=== PATIENT | female | born 2000 | race Hispanic/Latino ===

== ENCOUNTER 2021-05-12 11:46 | Emergency (ER) | payer OTHER ==
--- OUTSIDE RECORDS SUMMARY | 2021-05-12 11:49 | XMS REPORT | Continuity of Care Document ---
:2000 Author Organization [facility] t Address [address] [place] [address] Care Team Providers Name Role Phone Clinic, Gastroenterology Attending Clinician [phone] Artem Laguna DO Attending Clinician Lab, [facility] Pob I Attending Clinician Unavailable Doctor Unassigned, Name Attending Clinician Unavailable Anene BOX LOADER Attending Clinician Problems This patient has no known problems. Allergies, Adverse Reactions, Alerts This patient has no known allergies or adverse reactions. Medications This patient has no known medications. Procedures This patient has no known procedures. Encounters Start End Encounter Admission Attending Care Care Encounter Source Date/Time Date/Time Type Type Clinicians Facility Department ID 2021-02-17 2021-02-17 Letter [facility] [id number] 00:00:00 00:00:00 (Out) [facility] [id number] Gastroenter CLINICS [id number] ology [id number] 2021-02-08 2021-02-08 Patient Jase [facility] [id number] 00:00:00 00:00:00 Outreach [facility] [id number] Artem [facility] [id number] PAVILLION [id number] 2021-01-18 2021-01-18 Laboratory Lab, [facility] [id number] 18:22:09 18:42:09 Only Fam [facility] [id number] [place] [id number] Professio [phone] nal 0[address] One 2021-01-18 2021-01-18 Letter Doctor PALAK [id number] 00:00:00 00:00:00 (Out) Unassigned, JYOTI [id number] [facility] [id number] 2021-01-17 2021-01-17 Hospital [facility] [id number] 13:00:00 23:59:00 Encounter Raiza Martin [id number] [place] [id number] [place] [id number] 2021-01-17 2021-01-17 Orders Doctor PALAK [id number] 00:00:00 00:00:00 Only Unassigned, JYOTI [id number] [facility] [id number] 2020-12-30 2020-12-30 Office [facility] [id number] 11:36:59 12:01:21 Visit Raiza [place] [id number] [place] [id number] Professio [phone] nal 044 Office [address] One Results This patient has no known results.
[2021-05-12 12:47] LABS: Urine Blood Negative (Negative); Urine Glucose Negative (Negative); Urine Protein Negative (Negative); Urine Specific Gravity >=1.030 (1.005-1.030)
[2021-05-12] MEDS ORDERED: MORPHINE 4 MG/ML SYR ONE (12:58)
[2021-05-12] MEDS ORDERED: ONDANSETRON 4 MG/2 ML VIAL ONE (12:58)
[2021-05-12] MEDS ORDERED: NA CHLORIDE 0.9% 1,000 ML ONE (12:58)
[2021-05-12 13:04] LABS: Specific Gravity 1.025 (1.005-1.030); Urine Appearance CLEAR (Clear); Urine Bilirubin NEGATIVE (Negative); Urine Blood NEGATIVE (Negative); Urine Color YELLOW (Yellow); Urine Glucose NEGATIVE (Negative); Urine Protein NEGATIVE (Negative); Urine Specific Gravity 1.025 (1.005-1.030)
[2021-05-12 13:11] LABS: Urine Microscopic Reflex NO UMIC
--- NOTE | 2021-05-12 13:30 | RAD REPORT ---
EXAM DESCRIPTION: CT - Abdomen Pelvis W Contrast - 05/12/2021 1:18 pm CLINICAL HISTORY: abd pain COMPARISON: No comparisons TECHNIQUE: Biphasic, helical CT imaging of the abdomen and pelvis was performed following 100 ml non -ionic IV contrast. Oral contrast was given. All CT scans are performed using dose optimization technique as appropriate and may include automated exposure control or mA/KV adjustment according to patient size. FINDINGS: No suspicious findings in the lung bases. Liver shows diffuse fatty infiltration with no focal liver lesion. No portal vein abnormality seen. N o splenomegaly or focal splenic finding. Cholecystectomy clips are present. There is no dilatation of the biliary tree. No pancreatic or siddharth pancreatic abnormality identifiable. Gastric antrum and duodenum also out focal finding. Symmetric renal function is seen with no hydronephrosis or suspicious renal mass. No pyelonephritis o r acute parenchymal process. No bladder abnormalities. No adrenal abnormalities. An incidental 16 mil limeter cyst is present lateral mid left kidney. No dilated bowel loops or bowel wall thickening. Patient has a few small mesenteric lymph nodes prese nt. These are under 1 centimeter in probably not significant. The appendix is normal. No free air, fr ee fluid or inflammatory stranding. No hernia, mass or bulky lymphadenopathy. No uterine abnormality. No ovarian cyst rupture or hemorrhage. No adnexal abnormalities. No suspicious bony findings. IMPRESSION: Status post cholecystectomy with no biliary tree abnormality. The pancreas, gastric antr um and duodenum unremarkable as well. No acute GI, or RN NEW GRAD process identifiable. The few small sub centimeter mesenteric lymph nodes that are present are not likely clinically significant.
[2021-05-12 13:38] LABS: Absolute Lymphocytes (CBC) 3.1 K/uL (0.7-4.9); Hematocrit 35.6 % (36.0-45.0); Lymphocytes % 33.7 % (15.3-44.8); MPV 8.5 fL (7.6-11.3); RBC Red Blood Cell Count 4.13 M/uL (3.86-4.86)
[2021-05-12 13:57] LABS: ALT/SGPT 52 U/L (12-78); AST/SGOT 32 U/L (15-37); Alkaline Phosphatase 76 U/L (45-117); Amylase 25 U/L (25-115); BUN Blood Urea Nitrogen 8 mg/dL (7-18); Bicarbonate 23 mmol/L (21-32); Bilirubin Direct 0.1 mg/dL (0-0.2); Bilirubin Total 0.5 mg/dL (0.2-1.0); Glucose Level 85 mg/dL (74-106); Lipase 42 U/L (73-393); Potassium 3.5 mmol/L (3.5-5.1); Protein, Total 7.3 g/dL (6.4-8.2); Sodium Level 136 mmol/L (136-145)
--- NOTE | 2021-05-12 14:38 | ER ---
Nurse's Notes [facility] Name: Amy Myanard Age: 20 yrs Sex: Female : 2000 Arrival Date: 05/12/2021 Time: 11:48 Bed 25 Private MD: Diagnosis: Generalized abdominal pain Presentation: 05/12 11:51 Chief complaint: Patient states: "Right sided abdominal pain. it feels like my gal jd3 bladder but I had it taken out.". Coronavirus screen: At this time, the client does not indicate any symptoms associated with coronavirus-19. Ebola Screen: Patient negative for fever greater than or equal to 101.5 degrees Fahrenheit, and additional compatible Ebola Virus Disease symptoms. Initial Sepsis Screen: Does the patient meet any 2 criteria? No. Patient's initial sepsis screen is negative. Does the patient have a suspected source of infection? No. Patient's initial sepsis screen is negative. Risk Assessment: Do you want to hurt yourself or someone else? Patient reports no desire to harm self or others. Onset of symptoms was May 12, 2021. 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 - Social history:: Smoking status: Patient denies any tobacco usage or history of. Screenin:24 Abuse screen: Denies threats or abuse. Denies injuries from another. Nutritional ld1 screening: No deficits noted. Tuberculosis screening: No symptoms or risk factors identified. Fall Risk None identified. Assessment: 12:24 General: Appears in no apparent distress. comfortable, Behavior is calm, cooperative, ld1 appropriate for age. Pain: Complains of pain in epigastric area, right upper quadrant and left upper quadrant Pain does not radiate. Pain currently is 5 out of 10 on a pain scale. Quality of pain is described as throbbing, Pain began 3 hours ago. Is continuous. Neuro: Level of Consciousness is awake, alert, obeys commands, Oriented to person, place, time, situation, Appropriate for age. Cardiovascular: Capillary refill < 3 seconds Patient's skin is warm and dry. Respiratory: Airway is patent Respiratory effort is even, unlabored, Respiratory pattern is regular, symmetrical. GI: Abdomen is round non-distended, Bowel sounds present X 4 quads. Abd is soft Abdomen is tender to palpation X 4 quads. : Urine is clear. EENT: No signs and/or symptoms were reported regarding the EENT system. Derm: No signs and/or symptoms reported regarding the dermatologic system. Musculoskeletal: No signs and/or symptoms reported regarding the musculoskeletal system. 12:54 Reassessment: Pt to CT at this time VIA stretcher. ss 13:45 Reassessment: Patient appears in no apparent distress at this time. No changes from ld1 previously documented assessment. 14:30 Reassessment: Patient is alert, oriented x 3, equal unlabored respirations, skin ld1 warm/dry/pink. Waiting on results with family at bedside. Denies concerns at this time. Vital Signs: 11:52 BP 137 / 89; Pulse 107; Resp 18 S; Temp 97.6(TE); Pulse Ox 98% on R/A; Weight 108.86 kg jd3 (R); Height 5 ft. 0 in. (152.40 cm) (R); Pain 7/10; 12:50 BP 113 / 74; Pulse 70; Resp 18; Pulse Ox 99% on R/A; ld1 14:00 BP 100 / 62; Pulse 65; Resp 18; Pulse Ox 100% ; ld1 11:52 Body Mass Index 46.87 (108.86 kg, 152.40 cm) jd3 ED Course: 11:48 Patient arrived in ED. mr 11:51 Triage completed. jd3 11:53 Arm band placed on. jd3 11:55 Erika العراقي MD is Attending Physician. ma2 11:55 Kanchan Guillermo, CLARK is Primary Nurse. ld1 12:07 Dileep Gaines PA is PHCP. [facility] 12:24 Patient has correct armband on for positive identification. Bed in low position. Call ld1 light in reach. Side rails up X2. Pulse ox on. NIBP on. 12:24 No provider procedures requiring assistance completed. ld1 12:54 Inserted saline lock: 22 gauge in left wrist, using aseptic technique. ss 13:17 Abdomen In Process Unspecified. EDMS 13:38 Initial lab(s) drawn, Lab(s) recollected, by me, sent to lab. 5 13:39 Lipase Sent. 5 13:39 CBC with Automated Diff Sent. 5 13:39 Liver (Hepatic) Function Sent. 5 13:39 Amylase Sent. 5 13:39 Basic Metabolic Panel Sent. 5 13:39 CREATININE WHOLE BLOOD Sent. 5 14:36 Claudio Jaimes MD is Referral Physician. [facility] 14:46 IV discontinued, intact, bleeding controlled, No redness/swelling at site. ld1 Administered Medications: No medications were administered Outcome: 14:37 Discharge ordered by MD. [facility] 14:45 Discharged to home ambulatory. ld1 14:45 Condition: stable 14:45 Discharge instructions given to patient, Instructed on discharge instructions, follow up and referral plans. medication usage, Demonstrated understanding of instructions, follow-up care, medications. 14:46 Patient left the ED. ld1 Signatures: Dispatcher [employer] EDMS Dileep Gaines PA PA jmm Rivera, Mary mr Vika Perez, May Davis RN 5 Roberth Rodriguez RN RN Erika Mathis MD MD ms2 Kanchan Guillermo RN RN ld1
--- NOTE | 2021-05-12 14:38 | EDPHYS ---
Physician Documentation [facility] Name: Amy Maynard Age: 20 yrs Sex: Female : 2000 Arrival Date: 05/12/2021 Time: 11:48 Bed 25 Private MD: ED Physician Erika العراقي HPI: 05/12 12:32 This 20 yrs old Female presents to ER via Ambulatory with complaints of jmm Abdominal Pain, Nausea. 12:32 The patient presents with abdominal pain. Onset: The symptoms/episode began/occurred jmm this morning. The symptoms do not radiate. Associated signs and symptoms: Pertinent positives: diarrhea, vomiting. The symptoms are described as achy, contraction. Modifying factors: The symptoms are alleviated by nothing, the symptoms are aggravated by nothing. This is a 20 year old female with a history of IBS that presents to the ED with complaints of abdominal pain, vomiting beginning this morning. Pain is m,ainly epigastric. Describes the pain as contractions. . 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 - Social history:: Smoking status: Patient denies any tobacco usage or history of. ROS: 12:32 Constitutional: Negative for fever, chills, and weight loss, Cardiovascular: Negative jmm for chest pain, palpitations, and edema, Respiratory: Negative for shortness of breath, cough, wheezing, and pleuritic chest pain. 12:32 Abdomen/GI: Positive for abdominal pain, nausea and vomiting, diarrhea. 12:32 All other systems are negative. Exam: 12:32 Constitutional: This is a well developed, well nourished patient who is awake, alert, jmm and in no acute distress. Head/Face: atraumatic. Eyes: EOMI, no conjunctival erythema appreciated ENT: Moist Mucus Membranes Neck: Trachea midline, Supple Chest/axilla: Normal chest wall appearance and motion. Cardiovascular: Regular rate and rhythm. No edema appreciated Respiratory: Normal respirations, no respiratory distress appreciated Abdomen/GI: Non distended, soft Back: Normal ROM Skin: General appearance color normal MS/ Extremity: Moves all extremities, no obvious deformities appreciated, no edema noted to the lower extremities Neuro: Awake and alert, normal gait Psych: Behavior is normal, Mood is normal, Patient is cooperative and pleasant Vital Signs: 11:52 BP 137 / 89; Pulse 107; Resp 18 S; Temp 97.6(TE); Pulse Ox 98% on R/A; Weight 108.86 kg jd3 (R); Height 5 ft. 0 in. (152.40 cm) (R); Pain 7/10; 12:50 BP 113 / 74; Pulse 70; Resp 18; Pulse Ox 99% on R/A; ld1 14:00 BP 100 / 62; Pulse 65; Resp 18; Pulse Ox 100% ; ld1 11:52 Body Mass Index 46.87 (108.86 kg, 152.40 cm) jd3 MDM: 11:55 Patient medically screened. ma2 14:36 Data reviewed: vital signs, nurses notes. Counseling: I had a detailed discussion with didi the patient and/or guardian regarding: the historical points, exam findings, and any diagnostic results supporting the discharge/admit diagnosis, lab results, radiology results, the need for outpatient follow up, to return to the emergency department if symptoms worsen or persist or if there are any questions or concerns that arise at home. 05/12 12:32 Order name: Amylase; Complete Time: 14:05 EDTN 05/12 12:32 Order name: Basic Metabolic Panel; Complete Time: 14:05 EDTN 05/12 12:32 Order name: Lipase; Complete Time: 14:05 EDTN 05/12 12:32 Order name: Liver (Hepatic) Function; Complete Time: 14:05 EDTN 05/12 12:32 Order name: CBC with Automated Diff; Complete Time: 13:45 EDTN 05/12 12:47 Order name: Urine Dipstick-Ancillary; Complete Time: 12:56 EDMS 05/12 12:32 Order name: Abdomen ; Complete Time: 13:35 EDMS 05/12 12:47 Order name: Urine Dipstick-Ancillary EDTN 05/12 12:57 Order name: Test, Urine; Complete Time: 13:27 EDTN 05/12 12:57 Order name: Urinalysis; Complete Time: 13:27 EDMS 05/12 13:07 Order name: Labs - recollect needed: recollect lav and green; Complete Time: 13:28 ss 05/12 13:24 Order name: CREATININE WHOLE BLOOD EDTN Administered Medications: No medications were administered Disposition: 05/12/21 14:37 Discharged to Home. Impression: Generalized abdominal pain. - Condition is Stable. - Discharge Instructions: Abdominal Pain, Adult. - Prescriptions for Zofran 4 mg Oral tablet - take 1 tablet by ORAL route 4 times per day; 20 tablet. Carafate 1 gram Oral Tablet - take 1 tablet by ORAL route 4 times per day take on an empty stomach, beginning on waking and last dose at bedtime; 100 tablet. Pepcid 20 mg Oral Tablet - take 1 tablet by ORAL route once daily; 20 tablet. - Medication Reconciliation Form, Thank You Letter, Antibiotic Education, Prescription Opioid Use, Work release form form. - Follow up: Claudio Jaimes MD; When: 2 - 3 days; Reason: Recheck today's complaints, Continuance of care, Re-evaluation by your physician. Signatures: Dispatcher [employer] EDTN Dileep Gaines PA PA jmm Smirch, Shelby, RN RN ss Roberth Rodriguez RN RN Erika Mathis MD MD ma2 Kanchan Guillermo RN RN ld1 Corrections: (The following items were deleted from the chart) 14:46 14:37 05/12/2021 14:37 Discharged to Home. Impression: Generalized abdominal pain. ld1 Condition is Stable. Forms are Medication Reconciliation Form, Thank You Letter, Antibiotic Education, Prescription Opioid Use. Follow up: Claudio Jaimes; When: 2 - 3 days; Reason: Recheck today's complaints, Continuance of care, Re-evaluation by your physician. didi
[2021-05-12 14:59] VITALS: TEMP 97.6
[2021-05-12 15:01] VITALS: BP 100/62; O2SAT 100
== END 2021-05-12 14:46 | disposition home or self-care (01) ==
LOC: ER 11:46
DX: R10.84 Generalized abdominal pain (principal); R11.2 Nausea with vomiting, unspecified
CPT/HCPCS: 85025; 80048; 36415; 82150; 81025; 82565; 80076; 81003 ×2; 83690; 74177; Q9967; J7030; J2405

== ENCOUNTER 2021-11-02 13:59 | Emergency (ER) | payer OTHER ==
--- OUTSIDE RECORDS SUMMARY | 2021-11-02 14:02 | XMS REPORT | Continuity of Care Document ---
:2000 Author Organization [facility] t Address [address] [place] [address] Care Team Providers Name Role Phone ANENE Primary Care Physician Unavailable RAFY Attending Clinician Unavailable KIM SPANN Attending Clinician Unavailable Kim Spann MD Attending Clinician Rafy HESS Attending Clinician 2, Lab Attending Clinician Unavailable Doctor Unassigned, Name Attending Clinician Unavailable Clinic, Gastroenterology Attending Clinician [phone] Artem Laguna DO Attending Clinician Lab, Fam Pob I Attending Clinician Unavailable Marjorie LOBO Attending Clinician Unavailable Elan BAND INSTRUMENT MAKER Attending Clinician ANENAVEEN Attending Clinician Unavailable KIM SPANN Admitting Clinician Unavailable Payers Payer Name Policy Type Policy Number Effective Date Expiration Date Rene tomas [facility] [id number] 2020 00:00:00 Problems Condition Condition Condition Status Onset Resolution Last Treating Co mments Source Name Details Category Date Date Treatment Clinician Date High risk High risk Disease Active 2020-11 Uni vers , , 2-09 [place] Abdominal Abdominal Disease Active 2020-11 Uni vers pain, pain, 0-15 [place] of epigastric [place]igastric [place] Diarrhea, Diarrhea, Disease Active 2020-11 Uni vers unspecifie unspecifie 0-15 it y of d type d type 00:00: [place] 00 [facility] Heartburn Heartburn Disease Active 2020-11 Uni vers during during 0-15 [place] Med[place] l trimester trimester Bran ch Nausea and Nausea and Disease Active 2020-11 U nivers vomiting vomiting 0-15 ity of during during 00:00: [place] 00 [facility] Previous Previous Disease Active Unive rs 9-30 ity of section section 00:00: [place] [facility] History of History of Disease Active U nivers pre-eclamp pre-eclamp 9-30 it y of [place] 00:00: [place] prior prior 00 Medical , , Br anch currently currently BMI BMI Disease Active 2019-11 Univers 50.0-59.9, 50.0-59.9, 1-10 it y of adult adult 00:00: [place] [facility] History of History of Disease Active U nivers depression depression 9-21 it y of 00:00: [place] [facility] History of History of Disease Active U nivers anxiety anxiety 9-21 ity of 00:00: [address] Allergies, Adverse Reactions, Alerts Allergy Allergy Status Severity Reaction(s) Onset Inactive Treating Comm ents Source Name Type Date Date Clinician NO KNOWN Drug Active Univers ALLERGIE Class ity of S [facility] Social History Social Habit Start Date Stop Date Quantity Comments Source ASSERTION 2021-07-21 [facility] 00:00:00 [facility] Exposure to Not sure [facility] SARS-CoV-2 [facility] (event) Branch Alcohol intake 2021-10-27 2021-10-27 Ex-drinker [facility] 00:00:00 00:00:00 (finding) [facility] Tobacco use and 2020-08-09 2020-08-09 Never used Universit y of exposure 00:00:00 00:00:00 [facility] Sex Assigned At 2000 2000 Universit y of 00:00:00 00:00:00 [facility] Smoking Status Start Date Stop Date Source Never smoker [facility] Medications Ordered Filled Start Stop Current Ordering Indication Dosage Frequency Signature Comments Components Source Medication Medication Date Date Medication? Clinician (SIG) Name Name aspirin 81 2020-11 Yes [id number] 81mg Take 1 Univers mg EC 1-11 tablet by ity of tablet 00:00: mouth [place] 00 daily. Medical Branch aspirin 81 2020-11 Yes [id number] 81mg Take 1 Univers mg EC 1-11 tablet by ity of tablet 00:00: mouth [place] 00 daily. Medical Branch aspirin 81 2020-11 Yes [id number] 81mg Take 1 Univers mg EC 1-11 tablet by ity of tablet 00:00: mouth [place] 00 daily. Medical Branch aspirin 81 2020-11 Yes [id number] 81mg Take 1 Univers mg EC 1-11 tablet by ity of tablet 00:00: mouth [place] 00 daily. Medical Branch aspirin 81 2020-11 Yes [id number] 81mg Take 1 Univers mg EC 1-11 tablet by ity of tablet 00:00: mouth [place] 00 daily. Medical Branch aspirin 81 2020-11 Yes [id number] 81mg Take 1 Univers mg EC 1-11 tablet by ity of tablet 00:00: mouth [place] 00 daily. Medical Branch 2020-11- No Take by Univ ers vit 0-14 10-14 mouth. ity of calc,iron,f 16:27: 00:00 [place] ol 06 :00 Medical ( Branch VITAMIN ORAL) ondansetron 2020- No Take by U nivers HCl (ZOFRAN 08-18 mouth. ity o f ORAL) 15:23: 00:00 [place] 01 :00 Medical Branch famotidine 2020- No Take by Leonel hao (PEPCID 08-18 mouth. ity of ORAL) 15:22: 00:00 [place] 55 :00 Medical Branch Yes Take by Unive rs vit -30 mouth. ity of calc,iron,f 15:13: [place] [id number] Medical ( Branch VITAMIN ORAL) Yes Take by Unive rs vit -30 mouth. ity of calc,iron,f 15:13: [place] [address] Medical ( Branch VITAMIN ORAL) Yes Take by Unive rs vit -30 mouth. ity of calc,iron,f 15:13: [place] [address] Medical ( Branch VITAMIN ORAL) PNV Yes [id number] Take 1 Univers 102-iron-fo 9-30 TAB-CAP/M2 it y of late-dha 00:00: by mouth Antolin (VITAFOL FE 00 daily. Medica l PLUS) 90 mg Branch iron- 1 mg-200 mg Cap PNV 2020-0 Yes [id number] Take 1 Univers 102-iron-fo 9-30 TAB-CAP/M2 it y of late-dha 00:00: by mouth Antolin (VITAFOL FE 00 daily. Medica l PLUS) 90 mg Branch iron- 1 mg-200 mg Cap PNV 2020-0 Yes [id number] Take 1 Univers 102-iron-fo 9-30 TAB-CAP/M2 it y of late-dha 00:00: by mouth Antolin (VITAFOL FE 00 daily. Medica l PLUS) 90 mg Branch iron- 1 mg-200 mg Cap PNV 2020-0 Yes [id number] Take 1 Univers 102-iron-fo 9-30 TAB-CAP/M2 it y of late-dha 00:00: by mouth Antolin (VITAFOL FE 00 daily. Medica l PLUS) 90 mg Branch iron- 1 mg-200 mg Cap PNV 2020-0 Yes [id number] Take 1 Univers 102-iron-fo 9-30 TAB-CAP/M2 it y of late-dha 00:00: by mouth Antolin (VITAFOL FE 00 daily. Medica l PLUS) 90 mg Branch iron- 1 mg-200 mg Cap PNV 2020-0 Yes [id number] Take 1 Univers 102-iron-fo 9-30 TAB-CAP/M2 it y of late-dha 00:00: by mouth Antolin (VITAFOL FE 00 daily. Medica l PLUS) 90 mg Branch iron- 1 mg-200 mg Cap PNV 2020-0 Yes [id number] Take 1 Univers 102-iron-fo 9-30 TAB-CAP/M2 it y of late-dha 00:00: by mouth Antolin (VITAFOL FE 00 daily. Medica l PLUS) 90 mg Branch iron- 1 mg-200 mg Cap PNV 2020-0 Yes [id number] Take 1 Univers 102-iron-fo 9-30 TAB-CAP/M2 it y of late-dha 00:00: by mouth Antolin (VITAFOL FE 00 daily. Medica l PLUS) 90 mg Branch iron- 1 mg-200 mg Cap PNV 2021-0 Yes [id number] Take 1 Univers 102-iron-fo 9-30 TAB-CAP/M2 it y of late-dha 00:00: by mouth Antolin (VITAFOL FE 00 daily. Medica l PLUS) 90 mg Branch iron- 1 mg-200 mg Cap norgestimat 2019-11- No [id number] 1{tbl} Take 1 Univers e-ethinyl 1-10 08-18 tablet by ity of estradioL 00:00: 00:00 mouth Antolin 0.25-35 00 :00 daily. Medical mg-mcg per Branch tablet Immunizations Ordered Filled Immunization Date Status Comments [facility] e Immunization Name Name Influenza Virus 2021-09-01 Completed Universit y of Vaccine Quad IM, 00:00:00 [place] Me dical Preserv and ABX Branch Free 2-64 YRS Influenza Virus 2021-09-01 Completed Universit y of Vaccine Quad IM, 00:00:00 [place] Me dical Preserv and ABX Branch Free 6 MO-64 YRS Influenza Virus 2021-09-01 Completed Universit y of Vaccine Quad IM, 00:00:00 [place] Me dical Preserv and ABX Branch Free 6 MO-64 YRS Influenza Virus 2021-09-01 Completed Universit y of Vaccine Quad IM, 00:00:00 [place] Me dical Preserv and ABX Branch Free 6 MO-64 YRS Influenza Virus 2021-09-01 Completed Universit y of Vaccine Quad IM, 00:00:00 [place] Me dical Preserv and ABX Branch Free 6 MO-64 YRS Influenza Virus 2021-09-01 Completed Universit y of Vaccine Quad IM, 00:00:00 [place] Me dical Preserv and ABX Branch Free 6 MO-64 YRS Influenza Virus 2020-08-16 Completed Universit y of Vaccine Quad .5 mL 00:00:00 [place] Medical IM 6+ MO Branch Influenza Virus 2020-08-16 Completed Universit y of Vaccine Quad .5 mL 00:00:00 [place] Medical IM 6+ MO Branch Influenza Virus 2020-08-16 Completed Universit y of Vaccine Quad .5 mL 00:00:00 [place] Medical IM 6+ MO Branch Influenza Virus 2020-08-16 Completed Universit y of Vaccine Quad .5 mL 00:00:00 [place] Medical IM 6+ MO Branch Influenza Virus 2020-08-16 Completed Universit y of Vaccine Quad .5 mL 00:00:00 [facility] IM 6+ MO Branch Influenza Virus 2020-08-16 Completed Universit y of Vaccine Quad .5 mL 00:00:00 [place] Medical IM 6+ MO Branch Influenza Virus 2020-08-16 Completed Universit y of Vaccine Quad .5 mL 00:00:00 [place] Medical IM 6+ MO Branch Influenza Virus 2020-08-16 Completed Universit y of Vaccine Quad .5 mL 00:00:00 [place] Medical IM 6+ MO Branch Influenza Virus 2020-08-16 Completed Universit y of Vaccine Quad .5 mL 00:00:00 [facility] 6+ MO Branch TDAP 2020-08-09 Completed University of 00:00:00 [facility] TDAP 2020-08-09 Completed University of 00:00:00 [place] [facility] [place] TDAP 2020-08-09 Completed University of 00:00:00 [place] [facility] [place] TDAP 2020-08-09 Completed University of 00:00:00 [facility] TDAP 2020-08-09 Completed University of 00:00:00 [place] [facility] [place] TDAP 2020-08-09 Completed University of 00:00:00 [place] [facility] [place] TDAP 2020-08-09 Completed University of 00:00:00 [place] [facility] [place] TDAP 2020-08-09 Completed University of 00:00:00 [facility] TDAP 2020-08-09 Completed University of 00:00:00 [facility] Vital Signs Vital Name Observation Time Observation Value Comments Source Systolic blood 2021-10-27 17:27:00 95 mm[Hg] Univer sity of pressure [facility] Diastolic blood 2021-10-27 17:27:00 65 mm[Hg] Unive rsity of pressure [facility] Heart rate 2021-10-27 17:27:00 90 /min [facility] Body temperature 2021-10-27 17:27:00 36.78 [place] [facility] [place] [facility] Body height 2021-10-27 17:27:00 157.5 cm [facility] Body weight 2021-10-27 17:27:00 118.117 kg [facility] BMI 2021-10-27 17:27:00 47.63 kg/m2 [facility] Systolic blood 2021-09-29 16:17:00 113 mm[Hg] Univer sity of pressure [place] [facility] Diastolic blood 2021-09-29 16:17:00 66 mm[Hg] Unive rsity of pressure [place] [facility] Heart rate 2021-09-29 16:17:00 83 /min [facility]i ty [facility] [place] [facility] Body temperature 2021-09-29 16:17:00 36.94 [place] Univ ersity of [place] [facility] Respiratory rate 2021-09-29 16:17:00 18 /min Univ ersity of [place] [facility] Body height 2021-09-29 16:17:00 157.5 cm Universi ty [facility] [place] [facility] Body weight 2021-09-29 16:17:00 120.657 kg [facility]i ty [facility] [place] [facility] BMI 2021-09-29 16:17:00 48.65 kg/m2 Universi ty of [place] [facility] Systolic blood 2021-09-01 21:26:00 133 mm[Hg] Univer sity of pressure [place] [facility] Diastolic blood 2021-09-01 21:26:00 86 mm[Hg] Unive rsity of pressure [place] [facility] Heart rate 2021-09-01 21:26:00 104 /min [facility]i ty [facility] [place] [facility] Body temperature 2021-09-01 21:26:00 36.94 [place] Univ ersity of [place] [facility] Respiratory rate 2021-09-01 21:26:00 18 /min Univ ersity of [place] [facility] Body height 2021-09-01 21:26:00 157.5 cm Universi ty [facility] [place] [facility] Body weight 2021-09-01 21:26:00 125.193 kg [facility]i [facility] [place] [facility] BMI 2021-09-01 21:26:00 50.48 kg/m2 [facility]i ty [facility] [place] [facility] Systolic blood 2021-08-18 20:10:00 129 mm[Hg] Univer sity of pressure [place] [facility] Diastolic blood 2021-08-18 20:10:00 74 mm[Hg] Unive rsity of pressure [place] [facility] Heart rate 2021-08-18 20:10:00 92 /min [facility]i [facility] [place] [facility] Body temperature 2021-08-18 20:10:00 36.78 [place] Univ ersity of [place] [facility] Respiratory rate 2021-08-18 20:10:00 18 /min Univ ersity of [place] [facility] Body height 2021-08-18 20:10:00 157.5 cm [facility] Body weight 2021-08-18 20:10:00 126.1 kg [facility] BMI 2021-08-18 20:10:00 50.85 kg/m2 [facility] Procedures Procedure Date / Time Performing Clinician Source Performed POCT URINALYSIS W/O 2021-10-27 00:00:00 Mir Spann [facility] FLU VACC (), 2021-09-01 21:28:28 Mir Spann [facility] 2-64 YRS, .5ML, IM, Medical Bran ch QUAD (FLUCELVAX) ENDOSCOPY SPECIALTY TECHNICIAN CLINIC 2021-09-01 05:01:00 Doctor Unassigned, No [facility] ULTRASOUND Name [facility] POCT URINALYSIS W/O 2021-09-01 00:00:00 Mir Spann [facility] US OB TRANSVAGINAL 2021-08-18 21:41:37 Mir Spann [facility] CBC WITH DIFF 2021-08-18 20:56:00 Mir Spann [place] [facility] POCT TEST 2021-08-18 00:00:00 Mir Spann [facility] POCT URINALYSIS W/O 2021-08-18 00:00:00 Mir Spann [facility] Encounters Start End Encounter Admission Attending Care Care Encounter Source Date/Time Date/Time Type Type Clinicians Facility Department ID 2021-09-16 Outpatient [facility] TERESA [id number] Univers 21:02:53 [facility] [place] [facility] 2021-11-29 2021-11-29 Outpatient R [facility] [id number] Univers 10:15:00 10:15:00 [id number] [facility] [place] [facility] 2021-11-24 2021-11-24 Outpatient Renu HILLMAN [facility] [id number] Univers 10:45:00 10:45:00 MAURA [id number] [facility] [place] [facility] 2021-11-24 2021-11-24 Outpatient R RAFY [facility] [id number] Univers 10:45:00 10:45:00 MAURA itjuan [facility] 2021-10-27 2021-10-27 Outpatient R MIR SPANN [facility] [id number] Univers 11:15:00 12:05:42 ity [facility] 2021-10-27 2021-10-27 Routine Maria Ines [facility] [id number] Univers 11:13:50 12:05:42 [place] [id number] ity [id number] [phone] Pa dical NAL [address] [place] [address] 2021-10-27 2021-10-27 Outpatient R MORRIS SPANNEN [facility] [id number] Univers 11:15:00 11:15:00 [id number] [facility] 2021-10-27 2021-10-27 Letter Maria Ines [facility] [id number] Univers 00:00:00 00:00:00 (Out) [place] [id number] i ty of [place] [id number] [phone] Pa dical NAL [address] [place] [address] 2021-09-29 2021-09-29 Outpatient R RAFY [facility] [id number] Univers 10:00:00 10:37:05 MAURA [facility] [place] [facility] 2021-09-29 2021-09-29 Routine Rafy [facility] [id number] Univers 09:56:44 10:37:05 Maura MART[place] [id number] ity [id number] [phone] Pa dical NAL [address] [place] [address] 2021-09-29 2021-09-29 [facility] [id number] Univers 10:00:00 10:00:00 [facility] [id number] [facility] 2021-09-29 2021-09-29 Home Weatherizing Worker 2, Adc Lab [facility] [id number] Univers 08:48:03 09:16:30 Visit Mir Spann Kim MART[place] [id number] ity of [id number] [phone] Pa dical NAL [address] [facility] 2021-09-01 2021-09-01 [facility] [id number] Univers 16:01:18 17:17:31 Kim [place] [id number] ity of [id number] [phone] Pa dical nal [address] [facility] 2021-09-01 2021-09-01 Outpatient R MIR SPANN [facility] [id number] Univers 16:15:00 16:15:00 [id number] ity of [facility] 2021-09-01 2021-09-01 Outpatient R MIR SPANN [facility] [id number] Univers 16:15:00 16:15:00 ity of [facility] 2021-09-01 2021-09-01 Orders Doctor PALAK [id number] Univers 00:00:00 00:00:00 Only Unassigned, JYOTI [id number] ity of [place] [facility] [id number] Ismón as [phone] [address] 2021-08-22 2021-08-22 Telephone Mir Spann [facility] [id number] Univers 00:00:00 00:00:00 Kim [place] [id number] i ty of [id number] [phone] Pa dical nal [address] [facility] 2021-08-18 2021-08-18 Home Weatherizing Worker 2, Kathy Lab [facility] [id number] Univers 15:51:13 16:06:13 Visit Morris Spannmaria teresa [place] [id number] ity of [id number] Profess[place] [phone] Pa dical nal [address] [facility] 2021-08-18 2021-08-18 Initial Maria Ines [facility] [id number] Univers 14:32:48 15:47:37 [place] [id number] ity of Visit [place] [id number] Marah holly Aimee [phone] Pa dical nal [address] [facility] 2021-08-18 2021-08-18 Outpatient R MARIA INES MIR [facility] [id number] Univers 14:30:00 14:30:00 [id number] [facility] 2021-08-18 2021-08-18 Outpatient R MARIA INES [facility] [id number] Univers 14:30:00 14:30:00 [facility] [place] [facility] 2021-03-28 2021-03-28 Outpatient R RAFY [facility] [id number] Univers 08:00:00 08:00:00 [place] [id number] [facility] [place] [facility] 2021-03-28 2021-03-28 Outpatient R RAFY [facility] [id number] Univers 08:00:00 08:00:00 [facility] 2021-02-17 2021-02-17 Letter Clinic, [facility] [id number] 00:00:00 00:00:00 (Out) [facility] HEALTH [id number] Gastroenter CLINICS [id number] ology [id number] [id number] 2021-02-08 2021-02-08 Patient Jase [facility] [id number] 00:00:00 00:00:00 Outreach Santhosh PRIMARY [id number] Artem CARE [id number] PAVILLION [id number] [id number] 2021-01-31 2021-01-31 Outpatient R [facility] [id number] Univers 14:15:00 14:15:00 [id number] [facility] [place] [facility] 2021-01-18 2021-01-18 Laboratory Lab, [facility] [id number] 18:22:09 18:42:09 Only Fam Pob I [facility] [id number] Mario [id number] [facility] [id number] nal [address] 2021-01-18 2021-01-18 Outpatient [facility] [id number] Univers 18:20:00 18:20:00 [id number] [facility] [place] [facility] 2021-01-18 2021-01-18 [facility] [id number] Univers 18:20:00 18:20:00 SUKHDEEP graciejuan o f [facility] 2021-01-18 2021-01-18 Letter Doctor PALAK [id number] 00:00:00 00:00:00 (Out) Unassigned, JYOTI [id number] [place] [id number] [id number] 2021-01-17 2021-01-17 [facility] [id number] 13:00:00 23:59:00 Encounter Raiza [place] [id number] [place] [id number] [place] [id number] 2021-01-17 2021-01-17 [facility] [id number] Univers 13:00:00 13:00:00 RAIZA [id number] [facility] [place] [facility] 2021-01-17 2021-01-17 Outpatient [facility] [id number] Univers 00:00:00 00:00:00 RAIZA [facility] [place] [facility] 2021-01-17 2021-01-17 Orders Doctor PALAK [id number] 00:00:00 00:00:00 Only UnassignedJYOTI [id number] [place] [address]686 [id number] 2021-01-05 2021-01-05 Outpatient [facility] [id number] Univers 14:00:00 14:00:00 RAZIA [id number] [facility] [place] [facility] 2021-01-05 2021-01-05 [facility] [id number] Univers 00:00:00 00:00:00 RAIZA juan [facility] 2021-01-03 2021-01-03 Outpatient R ELAN [facility] [id number] Univers 08:00:00 08:00:00 RAIZA [id number] juan [facility] 2021-01-03 2021-01-03 [facility] [id number] Univers 00:00:00 00:00:00 RAIZA [facility] [place] [facility] 2020-12-30 2020-12-30 [facility] [id number] 11:36:59 12:01:21 Visit [facility] [id number] [place] [id number] Aimee [phone] nal [address] 2020-12-30 2020-12-30 [facility] [id number] Univers 11:30:00 11:30:00 RAIZA [facility] [place] [facility] 2020-12-27 2020-12-27 Outpatient R [facility] [id number] Univers 16:20:00 16:20:00 [id number] [facility] [place] [facility] 2020-12-27 2020-12-27 Outpatient R [facility] [id number] Univers 16:20:00 16:20:00 [facility] [place] [facility] 2020-09-28 2020-09-28 Outpatient Renu HILLMAN [facility] [id number] Univers 09:00:00 09:00:00 MAURA [facility] [place] [facility] 2020-09-28 2020-09-28 Outpatient Renu HILLMAN [facility] [id number] Univers 09:00:00 09:00:00 MAURA [facility] [place] [facility] 2020-09-20 2020-09-20 Outpatient Renu HILLMAN [facility] [id number] Univers 11:30:00 11:30:00 MAURA [facility] [place] [facility] 2020-09-20 2020-09-20 Outpatient Renu HILLMAN [facility] [id number] Univers 11:30:00 11:30:00 MAURA ity [facility] 2020-08-31 2020-08-31 Outpatient R MARIA INES MIR [facility] [id number] Univers 14:00:00 14:00:00 ity [facility] 2020-08-27 2020-08-27 Outpatient [facility] [id number] Univers 08:30:00 08:30:00 ity [facility] 2020-08-27 2020-08-27 Outpatient R MARIA INES [facility] [id number] Univers 08:30:00 08:30:00 ity [facility] 2020-08-23 2020-08-23 Outpatient R MARIA INES [facility] [id number] Univers 09:45:00 09:45:00 ity [facility] 2020-08-23 2020-08-23 Outpatient R MARIA INES [facility] [id number] Univers 09:45:00 09:45:00 ity [facility] 2020-08-16 2020-08-16 Outpatient R MARIA INES [facility] [id number] Univers 09:45:00 09:45:00 [id number] ity [facility] 2020-08-16 2020-08-16 Outpatient Renu SPANN [facility] [id number] Univers 09:45:00 09:45:00 ity [facility] 2020-08-09 2020-08-09 Outpatient R [facility] [id number] Univers 10:30:00 10:30:00 [id number] [facility] 2020-08-09 2020-08-09 Outpatient R MARIA INES [facility] [id number] Univers 09:00:00 09:00:00 [facility] Results Test Description Test Time Test Comments Results Result Comments Source POCT URINALYSIS W/O SPECIFIC GRAVITY 2021-10-27 17:26:00 Test Item Value Reference Range Interpretation Comme nts POCT PH U (test code = 3254) n/a 5-8 POCT U LEUK EST (test code = 3263) n/a Negative - Negative POCT U NIT (test code = 3262) n/a Negative - Negative POCT U PROT (test code = 3259) Trace Negative - Negative POCT U GLU (test code = 3256) Normal Negative - Negative POCT U KETONE (test code = 3258) n/a Negative - Negative POCT U BLD (test code = 3257) n/a Negative - Negative [facility]O SPECIFIC [id number] 21:30:00 Test Item Value Reference Range Interpretation Comments POCT PH U (test code = 3254) n/a 5-8 POCT U LEUK EST (test code = 3263) n/a Negative - Negative POCT U NIT (test code = 3262) n/a Negative - Negative POCT U PROT (test code = 3259) neg Negative - Negative POCT U GLU (test code = 3256) neg Negative - Negative POCT U KETONE (test code = 3258) n/a Negative - Negative POCT U BLD (test code = 3257) n/a Negative - Negative Lab Interpretation (test code = Normal 70756-9) [facility] WITH [id number] 21:29:35 Test Item Value Reference Range Interpretation Comments WBC (test code = See_Comment [Automated message] 6690-2) The system [employer] generated this result transmitted ref erence range: 4.30 - 1 1.10 10*3/?L. The re ference range was not u sed to interpret this result as normal/abnor mal. RBC (test code = See_Comment [Automated message] 789-8) The system [employer] generated this result transmitted ref erence range: 3.93 - 5 .25 10*6/?L. The re ference range was not u sed to interpret this result as normal/abnor mal. HGB (test code = 13.0 g/dL 11.6-15.0 718-7) HCT (test code = 39.2 % 35.7-45.2 4544-3) MCV (test code = 90.1 fL 80.6-95.5 787-2) MCH (test code = 29.9 pg 25.9-32.8 785-6) MCHC (test code = 33.2 g/dL 31.6-35.1 786-4) RDW-SD (test code 45.7 fL 39.0-49.9 = 88526-9) RDW-CV (test code 14.3 % 12.0-15.5 = 788-0) PLT (test code = See_Comment [Automated message] 777-3) The system whic h generated this result transmitted ref erence range: 166 - 35 8 10*3/?L. The re ference range was not u sed to interpret this result as normal/abnor mal. MPV (test code = 10.1 fL 9.5-12.9 00929-6) NRBC/100 WBC (test See_Comment [Automat ed message] code = 5347377135) The syste m which generated this result transmitted ref erence range: 0.0 - 10 .0 /100 WBCs. The refer ence range was not u sed to interpret this result as normal/abnor mal. NRBC x10^3 (test <0.01 See_Comment [Automated message] code = 9998200832) The syste m which generated this result transmitted ref erence range: 10*3/?L. The reference range was not used to interpr et this result as normal/abnormal . GRAN MAT (NEUT) % 55.4 % (test code = 770-8) IMM GRAN % (test 0.20 % code = 5999778921) LYMPH % (test code 32.4 % = 736-9) MONO % (test code 7.0 % = 5905-5) EOS % (test code = 4.4 % 713-8) BASO % (test code 0.6 % = 706-2) GRAN MAT 4.45 10*3/uL 1.88-7.09 x10^3(ANC) (test code = 4410260261) IMM GRAN x10^3 <0.03 0.00-0.06 (test code = 3867626297) LYMPH x10^3 (test 2.60 10*3/uL 1.32-3.29 code = 731-0) MONO x10^3 (test 0.56 10*3/uL 0.33-0.92 code = 742-7) EOS x10^3 (test 0.35 10*3/uL 0.03-0.39 code = 711-2) BASO x10^3 (test 0.05 10*3/uL 0.01-0.07 code = 704-7) [facility] [id number] 20:21:00 Test Item Value Reference Range Interpretation Comments POCT PH U (test code = 3254) N/A 5-8 POCT U LEUK EST (test code = N/A Negative - Negative 3263) POCT U NIT (test code = 3262) N/A Negative - Negative POCT U PROT (test code = 3259) Negative Negative - Negative POCT U GLU (test code = 3256) Negative Negative - Negative POCT U KETONE (test code = 3258) N/A Negative - Negative POCT U BLD (test code = 3257) N/A Negative - Negative [facility] [id number] 20:21:00 Test Item Value Reference Range Interpretation Comments POCT PREG (test code = 1605) Positive On board controls acceptable with C Yes Line (test code = 3574) POCT PREG LOT # (test code = 3575) POCT PREG TEST DATE (test code = 3576) [facility]
[2021-11-02 15:10] LABS: Urine Blood Negative (Negative); Urine Glucose Negative (Negative); Urine Protein Negative (Negative); Urine Specific Gravity 1.025 (1.005-1.030)
[2021-11-02 16:05] LABS: Urine Specific Gravity/Preg 1.025 (1.005-1.030)
[2021-11-02] MEDS ORDERED: Ringers Lactate 1,000 ML IV ONE (16:24)
[2021-11-02 16:26] LABS: Urine Bacteria 20-50 /HPF (<20); Urine RBC <5 /HPF (NONE SEEN)
[2021-11-02 16:44] LABS: Absolute Lymphocytes (CBC) 2.5 K/uL (0.7-4.9); Basophils % 0.6 % (0-1.3); Hematocrit 40.1 % (36.0-45.0); Lymphocytes % 27.4 % (15.3-44.8); MPV 8.3 fL (7.6-11.3); RBC Red Blood Cell Count 4.33 M/uL (3.86-4.86)
[2021-11-02 17:00] LABS: ALT/SGPT 32 U/L (12-78); AST/SGOT 14 U/L (15-37); Albumin 2.9 g/dL (3.4-5.0); Alkaline Phosphatase 79 U/L (45-117); BUN Blood Urea Nitrogen 6 mg/dL (7-18); Bicarbonate 23 mmol/L (21-32); Bilirubin Direct 0.1 mg/dL (0-0.2); Bilirubin Total 0.3 mg/dL (0.2-1.0); Glucose Level 83 mg/dL (74-106); Lipase 90 U/L (73-393); Potassium 3.9 mmol/L (3.5-5.1); Sodium Level 138 mmol/L (136-145)
--- NOTE | 2021-11-02 17:09 | RAD REPORT ---
EXAM DESCRIPTION: US - OB Limited - 11/02/2021 4:54 pm CLINICAL HISTORY: with abdominal pain COMPARISON: None FINDINGS: Limited ultrasound performed to assess for viability, placenta and amniotic fluid Single live intrauterine in cephalic presentation. Cervix 4 centimeters Placenta posterior. No subchorionic/retroplacental bleed Normal amniotic fluid volume. Cardiac activity 149 beats per minute Right and left adnexa unremarkable Femur length 2.2 centimeters. Estimated gestational age would be 16 weeks 4 days PRIYA 04/15/2022 IMPRESSION: Limited OB ultrasound demonstrates no gross abnormality. If a complete ultrasound includ ing a survey is desired it should be performed in approximately 2 weeks
--- NOTE | 2021-11-02 17:33 | EDPHYS ---
Physician Documentation [facility] [place] Name: Amy Maynard Age: 21 yrs Sex: Female : 2000 Arrival Date: 11/02/2021 Time: 14:00 Bed 10 Private MD: ED Physician Morgan Jewell HPI: 11/02 17:16 This 21 yrs old Female presents to ER via Ambulatory with complaints of jr8 Abdominal Cramping, Vaginal Discharge - 16 wks preg. 17:16 This is a 21-year-old female patient that presented to the emergency room with lower jr8 abdominal cramping and 1 day of vaginal discharge that has since resolved. Denies any urinary symptoms, nausea, vomiting, diarrhea, fevers. She is a G2, L1 patient.. Historical: - Allergies: 14:14 No Known Allergies; ss - PMHx: 14:14 ibs; at risk for preeclampsia; ss - PSHx: 14:14 Cholecystectomy; section; ss - Immunization history:: Client reports having NOT received the Covid vaccine. Flu vaccine is up to date. - Social history:: Smoking status: Patient denies any tobacco usage or history of. ROS: 17:16 Eyes: Negative for injury, pain, redness, and discharge, ENT: Negative for injury, jr8 pain, and discharge, Neck: Negative for injury, pain, and swelling, Cardiovascular: Negative for chest pain, palpitations, and edema, Respiratory: Negative for shortness of breath, cough, wheezing, and pleuritic chest pain, Back: Negative for injury and pain, MS/Extremity: Negative for injury and deformity, Skin: Negative for injury, rash, and discoloration, Neuro: Negative for headache, weakness, numbness, tingling, and seizure. 17:16 Abdomen/GI: Positive for abdominal cramps. 17:16 : Positive for vaginal discharge. Exam: 17:16 Constitutional: This is a well developed, well nourished patient who is awake, alert, jr8 and in no acute distress. Cardiovascular: Regular rate and rhythm with a normal S1 and S2. No gallops, murmurs, or rubs. Normal PMI, no JVD. No pulse deficits. Respiratory: Lungs have equal breath sounds bilaterally, clear to auscultation and percussion. No rales, rhonchi or wheezes noted. No increased work of breathing, no retractions or nasal flaring. Abdomen/GI: Soft, non-tender, with normal bowel sounds. No distension or tympany. No guarding or rebound. No evidence of tenderness throughout. Back: No spinal tenderness. No costovertebral tenderness. Full range of motion. Skin: Warm, dry with normal turgor. Normal color with no rashes, no lesions, and no evidence of cellulitis. MS/ Extremity: Pulses equal, no cyanosis. Neurovascular intact. Full, normal range of motion. Neuro: Awake and alert, GCS 15, oriented to person, place, time, and situation. Cranial nerves II-XII grossly intact. Motor strength 5/5 in all extremities. Sensory grossly intact. Vital Signs: 14:15 BP 126 / 54; Pulse 89; Resp 17; Temp 97.4; Pulse Ox 98% ; Weight 117.03 kg; Height 5 ss ft. 1 in. (154.94 cm); Pain 6/10; 14:15 Body Mass Index 48.75 (117.03 kg, 154.94 cm) ss MDM: 16:03 Patient medically screened. [facility] 17:32 Data reviewed: vital signs, nurses notes, lab test result(s), radiologic studies, [facility] ultrasound. Data interpreted: Pulse oximetry: on room air is 98 %. Interpretation: normal. Counseling: I had a detailed discussion with the patient and/or guardian regarding: the historical points, exam findings, and any diagnostic results supporting the discharge/admit diagnosis, lab results, radiology results, the need for outpatient follow up, an OB/Gyne specialist, to return to the emergency department if symptoms worsen or persist or if there are any questions or concerns that arise at home. ED course: With patient that there is no acute abnormal findings on ultrasound. Lab work stable other than her having some bacteria in her urine which can contribute to this. We have hydrated patient given her antibiotics we will send her home on antibiotics. Patient needs to follow-up with her OB GEN in the next couple days. If she were to run fever, have worsening of pain or have new symptoms to come back for further evaluation. Patient good with this at this time and will follow up and/or come back.. 11/02 15:10 Order name: Urine Dipstick-Ancillary; Complete Time: 16:08 EDOH 11/02 15:17 Order name: Urine Microscopic Only; Complete Time: 17:17 em1 11/02 15:18 Order name: Urine --Ancillary (enter results) em1 11/02 15:18 Order name: Urine --Ancillary; Complete Time: 16:08 EDMS 11/02 16:15 Order name: Basic Metabolic Panel; Complete Time: 17:17 jr8 11/02 16:15 Order name: CBC with Diff; Complete Time: 17:17 jr8 11/02 16:15 Order name: Hepatic Function; Complete Time: 17:17 jr8 11/02 16:15 Order name: Lipase; Complete Time: 17:17 jr8 11/02 16:15 Order name: US OB Limited; Complete Time: 17:17 jr8 11/02 16:28 Order name: Urine Culture EDOH 11/02 16:15 Order name: IV Saline Lock; Complete Time: 16:39 jr8 11/02 16:15 Order name: Labs collected and sent; Complete Time: 16:39 jr8 Administered Medications: 16:39 Drug: Ringers - Lactated Ringers Solution 1000 ml Route: IV; Rate: bolus; Site: right [facility] antecubital; 17:35 Drug: Rocephin (cefTRIAXone) 1 grams Route: IV; Rate: calculated rate; Site: left [facility] antecubital; Disposition Summary: 11/02/21 17:33 Discharge Ordered Location: Home [facility] Problem: new jr8 Symptoms: have improved jr8 Condition: Stable jr8 Diagnosis - Acute cystitis jr8 - Abdominal pain, Generalized jr8 Followup: jr8 - With: Private Physician - When: 2 - 3 days - Reason: Recheck today's complaints, Continuance of care, Re-evaluation by your physician Discharge Instructions: - Discharge Summary Sheet jr8 - Abdominal Pain, Adult jr8 - Urinary Tract Infection, Adult jr8 Forms: - Medication Reconciliation Form jr8 - Thank You Letter jr8 - Antibiotic Education jr8 - Prescription Opioid Use jr8 - Family Work Release [facility] Prescriptions: - Macrobid 100 mg Oral Capsule - take 1 capsule by ORAL route every 12 hours for 7 days; 14 capsule; Refills: 0, jr8 Product Selection Permitted Addendum: 11/05/2021 07:17 Co-signature as Attending Physician, Morgan Jewell MD I agree with the assessment and r n plan of care. Attestation: The patient's history, exam findings, diagnostics, and a summary of any interventions or procedures was reviewed in detail with Osvaldo NEGRON. Signatures: Dispatcher [employer] Morgan Carballo MD MD rn [facility] RN RN ss Roszak, Josh, PA PA jr8 Bela Winslow RN RN jh5
--- NOTE | 2021-11-02 17:33 | ER ---
Nurse's Notes [facility] [place] Name: Amy Maynard Age: 21 yrs Sex: Female : 2000 Arrival Date: 11/02/2021 Time: 14:00 Bed 10 Private MD: Diagnosis: Acute cystitis;Abdominal pain, Generalized Presentation: 11/02 14:15 Chief complaint: Patient states: Abdominal cramping for 2 days. Bloody mucous ss pinkish-brown discharge with wiping today. No fever. + N/V. Coronavirus screen: Vaccine status: Patient reports being unvaccinated. Client denies travel out of the [place] in the last 14 days. At this time, the client does not indicate any symptoms associated with coronavirus-19. Ebola Screen: Patient denies travel to an Ebola-affected area in the 21 days before illness onset. Initial Sepsis Screen: Does the patient meet any 2 criteria? No. Patient's initial sepsis screen is negative. Does the patient have a suspected source of infection? Yes: Acute abdominal pain. Risk Assessment: Do you want to hurt yourself or someone else? Patient reports no desire to harm self or others. Onset of symptoms was November 01, 2021. 14:15 Method Of Arrival: Ambulatory 14:15 Acuity: NAVID 3 ss Historical: - Allergies: 14:14 No Known Allergies; ss - PMHx: 14:14 ibs; at risk for preeclampsia; ss - PSHx: 14:14 Cholecystectomy; section; ss - Immunization history:: Client reports having NOT received the Covid vaccine. Flu vaccine is up to date. - Social history:: Smoking status: Patient denies any tobacco usage or history of. Vital Signs: 14:15 BP 126 / 54; Pulse 89; Resp 17; Temp 97.4; Pulse Ox 98% ; Weight 117.03 kg; Height 5 ss ft. 1 in. (154.94 cm); Pain 6/10; 14:15 Body Mass Index 48.75 (117.03 kg, 154.94 cm) ED Course: 14:00 Patient arrived in ED. as 14:14 Arm band placed on. 14:17 Triage completed. 16:03 Osvaldo Willoughby PA is PHCP. [facility] 16:03 Morgan Jewell MD is Attending Physician. 8 16:11 Bela Winslow, RN is Primary Nurse. 5 16:54 US OB Limited In Process Unspecified. EDMS Administered Medications: 16:39 Drug: Ringers - Lactated Ringers Solution 1000 ml Route: IV; Rate: bolus; Site: right [facility] antecubital; 17:35 Drug: Rocephin (cefTRIAXone) 1 grams Route: IV; Rate: calculated rate; Site: left [facility] antecubital; Outcome: 17:33 Discharge ordered by . jr8 17:51 Patient left the ED. 5 Signatures: Dispatcher [employer] EDMS Becca Wheeler Shelby, RN RN Osvaldo Neal PA PA [facility] Bela Winslow, RN RN [facility]
[2021-11-02] MEDS ORDERED: CEFTRIAXONE 1000 MG/VIAL ONE (17:35)
[2021-11-02 18:00] VITALS: BP 126/54; TEMP 97.4; O2SAT 98
== END 2021-11-02 17:51 | disposition home or self-care (01) ==
LOC: ER 13:59
DX: N30.00 Acute cystitis without hematuria (principal); R10.84 Generalized abdominal pain
CPT/HCPCS: 87088; 85025; 87086; 80048; 36415; 81025; 80076; 83690; 76815; 99283; J7120; 81003; 81015

== ENCOUNTER 2022-11-06 11:26 | Emergency (ER) | payer OTHER ==
--- OUTSIDE RECORDS SUMMARY | 2022-11-06 11:31 | XMS REPORT | Continuity of Care Document ---
:2000 Author Organization [facility] t Address [address] [place] [address] Care Team Providers Name Role Phone RAIZA ANSARI Primary Care Physician Unavailable MIR SPANN Attending Clinician Unavailable MAURA HILLMAN Attending Clinician Unavailable Mir Spann MD Attending Clinician Fontanilla III, SNOWBOARDING INSTRUCTOR, R Attending Clinician Palak Angelo MD Attending Clinician Doctor Unassigned, [place] Attending Clinician Unavailable Only, Adc Test Attending Clinician Unavailable Pob, [facility] Lab Main Attending Clinician Unavailable 2, [facility] Lab Attending Clinician Unavailable Maura Hillman PA-C Attending Clinician Ultrasound, Ang-Mfm Attending Clinician Unavailable Svitlana Gotti MD Attending Clinician [phone] SVITLANA GOTTI Attending Clinician Unavailable Raiza Curiel Attending Clinician Ultrasound, Ad[facility] Mfm Attending Clinician Unavailable Clinic, [facility] [place] [facility] Gastroenterology Attending Clinician [phone] Santhosh Laguna DO Attending Clinician Lab, [facility] Fam Pob I Attending Clinician Unavailable Sukhdeep Solorio Attending Clinician SUKHDEEP HALL Attending Clinician Unavailable RAIZA ANSARI Attending Clinician Unavailable Nurse, [facility] Attending Clinician Unavailable MIR SPANN Admitting Clinician Unavailable Mir Spann MD Admitting Clinician Payers Payer Name Policy Type Policy Number Effective Date Expiration Date Rene tomas [facility] [id number] 2020 00:00:00 Problems Condition Condition Condition Status Onset Resolution Last Treating Co mments Source Name Details Category Date Date Treatment Clinician Date 39 weeks 39 weeks Disease Active Unive rs gestation gestation 5-19 ity of of of 00:00: [place] 00 [facility] High risk High risk Disease Active 2020-11 Uni vers , , 2-09 it y of antepartum antepartum 00:00: [facility] Abdominal Abdominal Disease Active 2020-11 Uni vers pain, pain, 0-15 ity of epigastric epigastric 00:00: [place] [address] Medical Branch Diarrhea, Diarrhea, Disease Active 2020-11 Uni vers unspecifie unspecifie 0-15 it y of d type d type 00:00: [place] 00 [facility] Branch Heartburn Heartburn Disease Active 2020-11 Uni vers during during 0-15 [place] Medica l trimester trimester Bran ch Nausea and Nausea and Disease Active 2020-11 U nivers vomiting vomiting 0-15 ity of during during 00:00: [place] 00 [facility] Previous Previous Disease Active Unive rs 9-30 ity of section section 00:00: [place] 00 Medical Branch History of History of Disease Active U nivers pre-eclamp pre-eclamp 9-30 it y of [place] in 00:00: [place] prior prior 00 Medical , , Br anch currently currently Obesity, Obesity, Disease Active 2019-11 Unive rs Class III, Class III, 1-10 it y of BMI BMI 00:00: [place] 40-49.9 40-49.9 00 Medical (morbid (morbid Branch obesity) obesity) History of History of Disease Active U nivers depression depression 9-21 it y of 00:00: [place] 00 [facility] History of History of Disease Active U nivers anxiety anxiety - ity of 00:00: [place] 00 [facility] Allergies, Adverse Reactions, Alerts Allergy Allergy Status Severity Reaction(s) Onset Inactive Treating Comm ents Source Name Type Date Date Clinician NO KNOWN Drug Active Univers ALLERGIE Class ity of S [facility] Social History Social Habit Start Date Stop Date Quantity Comments Source ASSERTION 2021-07-21 [facility] 00:00:00 [facility] Exposure to 2022-04-08 2022-04-18 Not sure [facility] SARS-CoV-2 00:00:00 11:10:00 [facility] (event) [place] Alcohol intake 2022-04-07 2022-04-07 Ex-drinker [facility] 00:00:00 00:00:00 (finding) [facility] Tobacco use and 2020-08-09 2020-08-09 Never used Universit y of exposure 00:00:00 00:00:00 [facility] Sex Assigned At 2000 2000 Universit y of 00:00:00 00:00:00 [facility] Smoking Status Start Date Stop Date Source Never smoker [facility] Medications Ordered Filled Start Stop Current Ordering Indication Dosage Frequency Signature Comments Components Source Medication Medication Date Date Medication? Clinician (SIG) Name Name ibuprofen Yes 600mg 600 mg, Univ ers (IBU) 04-08 Oral, Q6H ity of tablet 600 05:00: ABX, First [place] mg 00 dose on [facility] 04/08/22 at 0000, Until Discontinu ed, Routine ibuprofen No 600mg 600 mg, Uni vers (IBU) 04-08-20 Oral, Q6H ity of tablet 600 05:00: 21:04 ABX, First [place] mg 00 :09 dose on [facility] 04/08/22 at 0000, Until Discontinu ed, Routine enoxaparin 2021- No [id number] 40mg inject 0.4 Univers 40 mg/0.4 04-08 05-29 mL under ity o f mL 00:00: 04:59 the skin [place] injection 00 :00 daily for Medic al 7 days. [place] enoxaparin 2021- No [id number] 40mg inject 0.4 Univers 40 mg/0.4 5-21 05-29 mL under ity o f mL 00:00: 04:59 the skin [place] injection 00 :00 daily for Medic al 7 days. Branch enoxaparin No [id number] 40mg inject 0.4 Univers 40 mg/0.4 -21 05-29 mL under ity o f mL 00:00: 04:59 the skin [place] injection 00 :00 daily for Medic al 7 days. Branch enoxaparin Yes 40mg 40 mg, Unive rs (LOVENOX) 5-20 Subcutaneo ity of injection 14:00: [place], DAILY, [place] 40 mg 00 First dose Medical on [place] 04/07/22 at 0900, Until Discontinu ed, Routine enoxaparin 2021- No 40mg 40 mg, Univ ers (LOVENOX) - 05-20 Subcutaneo ity of injection 14:00: 21:04 us, DAILY, [place] 40 mg 00 :09 First dose Medical on [facility] [place] 04/07/22 at 0900, Until Discontinu ed, Routine ferrous 2021- No Take by Univer s sulfate 5-20 05-20 mouth. ity of (IRON ORAL) 09:20: 00:00 [place] 47 :00 Medical Branch ferrous 2021- No Take by Univer s sulfate 5-20 05-20 mouth. ity of (IRON ORAL) 09:20: 00:00 [place] 47 :00 Medical Branch ferrous 2021- No Take by Univer s sulfate 5-20 05-20 mouth. ity of (IRON ORAL) 09:20: 00:00 [place] 47 :00 Medical Branch ketorolac 2021- No 30mg 30 mg, Unive rs (TORADOL) 04-07-21 Slow IV ity of injection 05:00: 04:59 Push, Q6H [place] 30 mg 00 :00 ABX, 4 Medical doses, Branch First dose on Sun04/07/22 at 0000, Last dose on Sun04/07/22 at 1800, Routine
kennel staff member approving Restricted medication : MIR SPANN CAM ketorolac 2021- No 30mg 30 mg, Unive rs (TORADOL) 5-20 05-20 Slow IV ity of injection 05:00: 21:04 Push, Q6H [place] 30 mg 00 :09 ABX, 4 Medical doses, Branch First dose on Sun04/07/22 at 0000, Last dose on Sun04/07/22 at 1800, Routine
kennel staff member approving Restricted medication : MIR SPANN CAM HYDROcodone Yes 1{tbl} 1 tablet, Univers -acetaminop 5-20 Oral, ity of hen (NORCO 03:00: Q6HPRN, [place] 5) 5-325 mg 00 Starting Medi sherie tablet 1 on [place] Branch tablet 04/06/22 at 2200, Until Discontinu ed, Routine, Pain (scale 7-10) acetaminoph Yes 650mg 650 mg, Un hao en 5-20 Oral, Q6H ity of (TYLENOL) 03:00: ABX, First [place] tablet 650 00 dose on Medica l mg [place] [facility] 04/06/22 at 2200, Until Discontinu ed, Routine HYDROcodone 2021- No 1{tbl} 1 tablet, Univers -acetaminop 5-20 05-20 Oral, ity of hen (NORCO 03:00: 21:04 Q6HPRN, [place] 5) 5-325 mg 00 :09 Starting Medi sherie tablet 1 on [place] Branch tablet 04/06/22 at 2200, Until Sun04/07/22 at 1604, Routine, Pain (scale 7-10) acetaminoph 2021- No 650mg 650 mg, U nivers en 5-20 05-20 Oral, Q6H ity of (TYLENOL) 03:00: 21:04 ABX, First [place] tablet 650 00 :09 dose on Medica l mg [place] [facility] 04/06/22 at 2200, Until Discontinu ed, Routine acetaminoph 2021-0 Yes [id number] 650mg Take 2 Univers en 325 mg 5-20 tablets by ity of tablet 00:00: mouth [place] 00 every 6 Medical (six) Branch hours as needed for Pain (scale 1-3) or Pain (scale 4-6). Yes [id number] 1{tbl} Take 1 Univers vitamin 5-20 tablet by ity of w/FA tablet 00:00: mouth [place] 00 daily. Medical Branch docusate Yes [id number] 200mg Take 2 U nivers 100 mg 5-20 capsules ity of capsule 00:00: by mouth [place] 00 once daily Medical as needed Branch for Constipati on. ferrous Yes [id number] 325mg Take 1 Un hao sulfate 325 5-20 tablet by ity of mg (65 mg 00:00: mouth 2 [place] iron) 00 (two) Medical tablet times Branch daily. ibuprofen Yes [id number] 600mg Take 1 Univers 600 mg 5-20 tablet by ity of tablet 00:00: mouth [place] 00 every 6 Medical (six) Branch hours as needed (Pain). Take with food or milk. acetaminoph Yes [id number] 650mg Take 2 Univers en 325 mg 5-20 tablets by ity of tablet 00:00: mouth [place] 00 every 6 Medical (six) Branch hours as needed for Pain (scale 1-3) or Pain (scale 4-6). Yes [id number] 1{tbl} Take 1 Univers vitamin 5-20 tablet by ity of w/FA tablet 00:00: mouth [place] 00 daily. Medical Branch docusate Yes [id number] 200mg Take 2 U nivers 100 mg 5-20 capsules ity of capsule 00:00: by mouth [place] 00 once daily Medical as needed Branch for Constipati on. ferrous Yes [id number] 325mg Take 1 Un hao sulfate 325 5-20 tablet by ity of mg (65 mg 00:00: mouth 2 [place] iron) 00 (two) Medical tablet times Branch daily. ibuprofen Yes [id number] 600mg Take 1 Univers 600 mg 5-20 tablet by ity of tablet 00:00: mouth [place] 00 every 6 Medical (six) Branch hours as needed (Pain). Take with food or milk. acetaminoph Yes [id number] 650mg Take 2 Univers en 325 mg 5-20 tablets by ity of tablet 00:00: mouth [place] 00 every 6 Medical (six) Branch hours as needed for Pain (scale 1-3) or Pain (scale 4-6). Yes [id number] 1{tbl} Take 1 Univers vitamin 5-20 tablet by ity of w/FA tablet 00:00: mouth [place] 00 daily. Medical Branch docusate Yes [id number] 200mg Take 2 U nivers 100 mg 5-20 capsules ity of capsule 00:00: by mouth [place] 00 once daily Medical as needed Branch for Constipati on. ferrous Yes [id number] 325mg Take 1 Un hao sulfate 325 5-20 tablet by ity of mg (65 mg 00:00: mouth 2 [place] iron) 00 (two) Medical tablet times Branch daily. ibuprofen Yes [id number] 600mg Take 1 Univers 600 mg 5-20 tablet by ity of tablet 00:00: mouth [place] 00 every 6 Medical (six) Branch hours as needed (Pain). Take with food or milk. acetaminoph Yes [id number] 650mg Take 2 Univers en 325 mg 5-20 tablets by ity of tablet 00:00: mouth [place] 00 every 6 Medical (six) Branch hours as needed for Pain (scale 1-3) or Pain (scale 4-6). Yes [id number] 1{tbl} Take 1 Univers vitamin 5-20 tablet by ity of w/FA tablet 00:00: mouth [place] 00 daily. Medical Branch docusate Yes [id number] 200mg Take 2 U nivers 100 mg 5-20 capsules ity of capsule 00:00: by mouth [place] 00 once daily Medical as needed Branch for Constipati on. ferrous Yes [id number] 325mg Take 1 Un hao sulfate 325 5-20 tablet by ity of mg (65 mg 00:00: mouth 2 [place] iron) 00 (two) Medical tablet times Branch daily. ibuprofen Yes [id number] 600mg Take 1 Univers 600 mg 5-20 tablet by ity of tablet 00:00: mouth [place] 00 every 6 Medical (six) Branch hours as needed (Pain). Take with food or milk. HYDROcodone 2021- No [id number] 1{tbl} Take 1 U nivers -acetaminop 5-20 05-28 tablet by it y of hen 5-325 00:00: 04:59 mouth [place] mg tablet 00 :00 every 6 Medical (six) Branch hours as needed for Pain (scale 7-10) for up to 7 days. Indication s: acute pain HYDROcodone 2021- No [id number] 1{tbl} Take 1 U nivers -acetaminop 5-20 05-28 tablet by it y of hen 5-325 00:00: 04:59 mouth [place] mg tablet 00 :00 every 6 Medical (six) Branch hours as needed for Pain (scale 7-10) for up to 7 days. Indication s: acute pain HYDROcodone 2021- No [id number] 1{tbl} Take 1 U nivers -acetaminop 5-20 05-28 tablet by it y of hen 5-325 00:00: 04:59 mouth [place] mg tablet 00 :00 every 6 Medical (six) Branch hours as needed for Pain (scale 7-10) for up to 7 days. Indication s: acute pain gabapentin 2021- No [id number] 300mg Take 1 Univers 300 mg 5-20 05-26 capsule by ity of capsule 00:00: 04:59 mouth 3 [place] 00 :00 (three) Medical times Branch daily for 5 days. gabapentin 2021-2021- No [id number] 300mg Take 1 Univers 300 mg 5-20 05-26 capsule by ity of capsule 00:00: 04:59 mouth 3 [place] 00 :00 (three) Medical times Branch daily for 5 days. gabapentin 2021- No [id number] 300mg Take 1 Univers 300 mg 5-20 05-26 capsule by ity of capsule 00:00: 04:59 mouth 3 [place] 00 :00 (three) Medical times Branch daily for 5 days. metoclopram Yes 10mg 10 mg, IV U nivers caitie HCl 04-06 Piggyback, ity of (REGLAN) 10 22:35: Q6HPRN, [place] mg in NaCl 05 Starting Medic al 0.9% (NS) on [place] Branch piggyback 04/06/22 at 1735, Until Discontinu ed, 50 mL metoclopram 2021- No 10mg 10 mg, IV Univers caitie HCl 04-06 Piggyback, ity o f (REGLAN) 10 22:35: 21:04 Q6HPRN, [place] mg in NaCl 05 :09 Starting Medic al 0.9% (NS) on [facility] Branch piggyback 04/06/22 at 1735, Until Sun04/07/22 at 1604, 50 mL acetaminoph No 1000mg 1,000 mg, Univers en ADULT 04-06 IV ity of (OFIRMEV) 20:30: 20:04 Infusion, [place] injection 00 :00 Administer Medi sherie 1,000 mg over 15 Branch Minutes, Q6H, 1 dose, First dose on [facility] 04/06/22 at 1530, Routine
Indicatio n: Perioperat sumit Patient gabapentin Yes 300mg 300 mg, Uni vers (NEURONTIN) 04-06 Oral, TID, it y of capsule 300 19:00: First dose [place] mg 00 on [facility] 04/06/22 at Branch 1400, Until Discontinu ed, Routine gabapentin 2021- No 300mg 300 mg, Un hao (NEURONTIN) 04-06 Oral, TID, i ty of capsule 300 19:00: 21:04 First dose [place] mg 00 :09 on [facility] 04/06/22 at Branch 1400, Until Discontinu ed, Routine lactated 2021- No 1000mL at 125 Univ ers ringers IV 04-06 mL/hr, ity of infusion 16:15: 18:32 1,000 mL, [place] 1,000 mL 00 :00 IV Medical Infusion, Branch ONCE, 1 dose, On [facility] 04/06/22 at 1115, Routine rho(D) Yes 300ug 300 mcg, Univer s immune 04-06 Intramuscu ity of globulin 16:06: lar, ONCE, [place] (RHOGAM) 36 For 1 Medical syringe 300 dose, Branch mcg Conditiona l, Routine rho(D) 2021- No 300ug 300 mcg, Unive rs immune 04-06 Intramuscu ity of globulin 16:06: 21:04 lar, ONCE, [place] (RHOGAM) 36 :09 For 1 Medical syringe 300 dose, Branch mcg Conditiona l, Routine diphenhydrA Yes 25mg 25 mg, Univ ers MINE 5- Slow IV ity of (BENADRYL) 16:06: Push, [place] injection 30 Q6HPRN, Medical 25 mg Starting Branch on [place] 04/06/22 at 1106, Until Discontinu ed, Routine, Itching diphenhydrA 2021-0 Yes 25mg 25 mg, Univ ers MINE - Oral, ity of (BENADRYL) 16:06: Q6HPRN, [place] tablet 25 30 Starting Medica l mg on [place] [facility] 04/06/22 at 1106, Until Discontinu ed, Routine, Sleep, Itching ondansetron 2021-0 Yes 4mg 4 mg, Slow Univers (ZOFRAN 04-06 IV Push, ity of (PF)) 16:06: Q8HPRN, [place] injection 4 30 Starting Medi sherie mg on [facility] Branch 04/06/22 at 1106, Until Discontinu ed, Routine, Nausea and Vomiting (N/V) bisacodyL 2021-0 Yes 10mg 10 mg, Univer s (DULCOLAX) 04-06 Rectal, ity of suppository 16:06: QDAILYPRN, [place] 10 mg 30 Starting Medical on [facility] Branch 04/06/22 at 1106, Until Discontinu ed, Routine, Constipati on simethicone 2021-0 Yes 160mg 160 mg, Un hao (GAS RELIEF 04-06 Oral, ity of (SIMETHICON 16:06: PC+HSPRN, [place] E)) 30 Starting Medical chewable on [facility] Branch tablet 160 04/06/22 at mg 1106, Until Discontinu ed, Routine, Gas docusate 2021-0 Yes 200mg 200 mg, Unive rs (COLACE) 04-06 Oral, ity of capsule 200 16:06: QDAILYPRN, [place] mg 30 Starting Medical on [facility] Branch 04/06/22 at 1106, Until Discontinu ed, Routine, Constipati on magnesium 2021-0 Yes 30mL 30 mL, Univer s hydroxide 04-06 Oral, ity of (MILK OF 16:06: QDAILYPRN, [place] MAGNESIA) 30 Starting Medica l 400 mg/5 mL on [place] Branch suspension 04/06/22 at 30 mL 1106, Until Discontinu ed, Routine, Constipati on diphenhydrA 2021- No 25mg 25 mg, Uni vers MINE 04-06 Slow IV ity of (BENADRYL) 16:06: 21:04 Push, [place] injection 30 :09 Q6HPRN, Medical 25 mg Starting Branch on [place] 04/06/22 at 1106, Until Sun04/07/22 at 1604, Routine, Itching diphenhydrA 2021- No 25mg 25 mg, Uni vers MINE 04-06 Oral, ity of (BENADRYL) 16:06: 21:04 Q6HPRN, [place] tablet 25 30 :09 Starting Medica l mg on [place] [facility] 04/06/22 at 1106, Until Sun04/07/22 at 1604, Routine, Sleep, Itching ondansetron 2021- No 4mg 4 mg, Slow Univers (ZOFRAN 04-06 IV Push, ity of (PF)) 16:06: 21:04 Q8HPRN, [place] injection 4 30 :09 Starting Medi sherie mg on [place] [facility] 04/06/22 at 1106, Until Sun04/07/22 at 1604, Routine, Nausea and Vomiting (N/V) bisacodyL 2021- No 10mg 10 mg, Unive rs (DULCOLAX) 04-06 Rectal, ity o f suppository 16:06: 21:04 QDAILYPRN, [place] 10 mg 30 :09 Starting Medical on [place] [facility] 04/06/22 at 1106, Until Sun04/07/22 at 1604, Routine, Constipati on simethicone 2021- No 160mg 160 mg, U nivers (GAS RELIEF 04-06 Oral, ity of (SIMETHICON 16:06: 21:04 PC+HSPRN, [place] E)) 30 :09 Starting Medical chewable on [place] Branch tablet 160 04/06/22 at mg 1106, Until Sun04/07/22 at 1604, Routine, Gas docusate 2021- No 200mg 200 mg, Univ ers (COLACE) 04-06 Oral, ity of capsule 200 16:06: 21:04 QDAILYPRN, [place] mg 30 :09 Starting Medical on [place] [facility] 04/06/22 at 1106, Until 04/07/22 at 1604, Routine, Constipati on magnesium 2021- No 30mL 30 mL, Unive rs hydroxide 04-06 Oral, ity of (MILK OF 16:06: 21:04 QDAILYPRN, [place] MAGNESIA) 30 :09 Starting Medica l 400 mg/5 mL on [place] Branch suspension 04/06/22 at 30 mL 1106, Until 04/07/22 at 1604, Routine, Constipati on mupirocin Yes Intra-op Univ ers (BACTROBAN 04-06 ity of OINT) 2 % 14:55: [place] skin 00 Medical ointment Branch mupirocin 2021- No Intra-op Uni vers (BACTROBAN 04-06 ity of OINT) 2 % 14:55: 21:04 [place] skin 00 :09 Medical ointment Branch ondansetron 2021- No 4mg 4 mg, Slow Univers (ZOFRAN 04-06 IV Push, ity of (PF)) 14:45: 15:51 ONCE, 1 [place] injection 4 00 :00 dose, On Medi sherie mg [facility] Branch 04/06/22 at 0945, Routine acetaminoph 2021- No IV Unive rs en ADULT 04-06 Infusion, ity o f (OFIRMEV) 14:30: 15:03 Administer [place] injection 00 :03 over 15 Medical Minutes, Branch ONCE INTRA PROCEDURE, Starting on [place] 04/06/22 at 0930, Until [place] 04/06/22 at 1003, Routine, Intra-op naloxone 2021- No .4mg 0.4 mg, Unive rs (NARCAN) 04-06 Slow IV ity of injection 14:28: 23:14 Push, PRN [place] 0.4 mg 37 :19 - SEE Medical INSTRUCTIO Branch NS, Starting on [place] 04/06/22 at 0928, Until 04/08/22 at 1814, Routine, Analgesia Recovery naloxone 2021- No .4mg 0.4 mg, Unive rs (NARCAN) 04-06 Slow IV ity of injection 14:28: 21:04 Push, PRN [place] 0.4 mg 37 :09 - SEE Medical INSTRUCTIO Branch NS, Starting on [place] 04/06/22 at 0928, Until Sun04/07/22 at 1604, Routine, Analgesia Recovery oxytocin 2021- No IV Univers (PITOCIN) 04-06 Infusion, ity of 30 units in 14:17: 15:03 CONTINUOUS [place] NS 500 mL 00 :03 PRN, Medical IV infusion Starting Bran ch on [place] 04/06/22 at 0917, Until [place] 04/06/22 at 1003, Routine, Intra-op ondansetron 2021- No Slow IV Un hao (ZOFRAN 04-06 Push, ONCE ity o f (PF)) 13:55: 15:03 INTRA [place] injection 00 :03 PROCEDURE, Medi sherie Starting Branch on [place] 04/06/22 at 0855, Until [place] 04/06/22 at 1003, Routine, Intra-op PHENYLephri 2021- No Slow IV [place]o ne 1000 04-06 Push, ity of mcg/10 mL 13:52: 15:03 CONTINUOUS [place] in 0.9% 00 :03 PRN, Medical NaCl Starting Branch syringe on [place] 04/06/22 at 0852, Until [place] 04/06/22 at 1003, Routine, Intra-op morpHINE PF 2021- No Intratheca Univers (DURAMORPH- 04-06 l, ONCE ity of PF) 13:51: 15:03 INTRA [place] injection 00 :03 PROCEDURE, Medi sherie Starting Branch on [place] 04/06/22 at 0851, Until [place] 04/06/22 at 1003, Routine, Intra-op FENTanyl PF 2021- No Intratheca Univers (SUBLIMAZE 04-06 l, ONCE ity o f (PF)) 13:51: 15:03 INTRA [place] injection 00 :03 PROCEDURE, Medi sherie Starting Branch on [place] 5/19/22 at 0851, Until [place] 04/06/22 at 1003, Routine, Intra-op bupivacaine 2021- No Retrobulba Univers (preserv 04-06 r - Right ity o f free) 13:51: 15:03 Eye, ONCE [place] (SENSORCAIN 00 :03 INTRA Medical E MPF) 0.75 PROCEDURE, Br anch % (7.5 Starting mg/mL) on [place] injection 04/06/22 at 0851, Until [place] 04/06/22 at 1003, Routine, Intra-op oxytocin 2021- No 300mL/h 300 mL/hr, Univers (PITOCIN) 04-06 IV ity of 30 units in 13:21: 15:23 Infusion, [place] NS 500 mL 17 :20 SEE-INSTRU Medi sherie IV infusion CTIONS, Branc h Starting on [place] 04/06/[address] at 300 mL/hr for 1 hr then 150 mL/hr for 1 hr. & nbsp; For post delivery uterotonic
lactated 2021- No IV Univers ringers IV 04-06 Infusion, ity of infusion 13:12: 15:03 CONTINUOUS [place] 00 :03 PRN, Medical Starting Branch on [place] 04/06/22 at 0812, Until [place] 04/06/22 at 1003, Routine, Intra-op sodium Yes PRN, Univers chloride 04-06 Starting ity of 0.9 % 13:10: on [place] irrigation 00 04/06/22 at Med ical solution 0810, Branch Until Discontinu ed, Intra-op sodium 2021- No PRN, Univers chloride 04-06 Starting ity of 0.9 % 13:10: 21:04 on [place] irrigation 00 :09 04/06/22 at Med ical solution 0810, Branch Until 04/07/22 at 1604, Intra-op sodium 2021- No 30mL 30 mL, Univers citrate-cit 04-06 Oral, ity of luis acid 10:29: 12:20 PRE-PROCED [place] (BICITRA) 33 :00 URE ONCE, Medic al 500-334 1 dose, Branch mg/5 mL Starting solution 30 on [place] mL 04/06/22 at 0529, Until Discontinu ed, Routine, Surgery/Pr ocedure ferrous 2021-0 Yes Take by Univers sulfate 5-16 mouth. ity of (IRON ORAL) 21:06: [address] ferrous 2-0 Yes Take by Univers sulfate 5-16 mouth. ity of (IRON ORAL) 21:06: [address] ferrous 2021-0 Yes Take by Univers sulfate 5-16 mouth. ity of (IRON ORAL) 21:06: [place] [facility] ferrous 2021-0 Yes Take by Univers sulfate 5-16 mouth. ity of (IRON ORAL) 21:06: [place] [facility] acyclovir 2021-0 Yes [id number] 400mg Take 1 U nivers 400 mg 4-28 tablet by ity of tablet 00:00: mouth 3 00 (three) Medical times Branch daily. acyclovir 2021-0 Yes [id number] 400mg Take 1 U nivers 400 mg 4-28 tablet by ity of tablet 00:00: mouth 3 [place] ([facility]) Medical times Branch daily. acyclovir 2021-0 Yes [id number] 400mg Take 1 U nivers 400 mg 4-28 tablet by ity of tablet 00:00: mouth 3 [place] ([facility]) Medical times Branch daily. acyclovir 2021-0 Yes [id number] 400mg Take 1 U nivers 400 mg 4-28 tablet by ity of tablet 00:00: mouth 3 [place] 00 (three) Medical times Branch daily. acyclovir 2021-0 2022- No [id number] 400mg Take 1 Univers 400 mg 4-28 05-20 tablet by ity of tablet 00:00: 00:00 mouth 3 [place] 00 :00 (three) Medical times Branch daily. aspirin 81 2020- Yes [id number] 81mg Take 1 Univers mg EC 1-11 tablet by ity of tablet 00:00: mouth [place] 00 daily. Medical Branch aspirin 81 2020- Yes [id number] 81mg Take 1 Univers mg EC 1-11 tablet by ity of tablet 00:00: mouth [place] 00 daily. Medical Branch aspirin 81 2020- Yes [id number] 81mg Take 1 Univers mg EC 1-11 tablet by ity of tablet 00:00: mouth [place] 00 daily. Medical Branch aspirin 81 2021-1 Yes [id number] 81mg Take 1 Univers mg EC 1-11 tablet by ity of tablet 00:00: mouth [place] 00 daily. Medical Branch aspirin 81 2020-11- No [id number] 81mg Take 1 Univers mg EC 1-11 05-20 tablet by ity of tablet 00:00: 00:00 mouth [place] 00 :00 daily. Medical Branch aspirin 81 2020-11- No [id number] 81mg Take 1 Univers mg EC 1-11 05-20 tablet by ity of tablet 00:00: 00:00 mouth [place] 00 :00 daily. Medical Branch aspirin 81 2020-11- No [id number] 81mg Take 1 Univers mg EC 1-11 05-20 tablet by ity of tablet 00:00: 00:00 mouth [place] 00 :00 daily. Medical Branch PNV Yes [id number] Take 1 Univers 102-iron-fo 9-30 TAB-CAP/M2 it y of late-dha 00:00: by mouth [place] (VITAFOL FE 00 daily. Medica l PLUS) 90 mg Branch iron- 1 mg-200 mg Cap PNV Yes [id number] Take 1 Univers 102-iron-fo 9-30 TAB-CAP/M2 it y of late-dha 00:00: by mouth [place] (VITAFOL FE 00 daily. Medica l PLUS) 90 mg Branch iron- 1 mg-200 mg Cap PNV Yes [id number] Take 1 Univers 102-iron-fo 9-30 TAB-CAP/M2 it y of late-dha 00:00: by mouth [place] (VITAFOL FE 00 daily. Medica l PLUS) 90 mg Branch iron- 1 mg-200 mg Cap PNV Yes [id number] Take 1 Univers 102-iron-fo 9-30 TAB-CAP/M2 it y of late-dha 00:00: by mouth [place] (VITAFOL FE 00 daily. Medica l PLUS) 90 mg Branch iron- 1 mg-200 mg Cap PNV 2021- No [id number] Take 1 Univer s 102-iron-fo 9-30 05-20 TAB-CAP/M2 i ty of late-dha 00:00[place]VITAFOL FE 00 :00 daily. Medica l PLUS) 90 mg Branch iron- 1 mg-200 mg Cap PNV 2021- No [id number] Take 1 Univer s 102-iron-fo 08-18 05-20 TAB-CAP/M2 i ty of late-dha 00:00[place] (VITAFOL FE 00 :00 daily. Medica l PLUS) 90 mg Branch iron- 1 mg-200 mg Cap PNV 2021- No [id number] Take 1 Univer s 102-iron-fo 08-18 05-20 TAB-CAP/M2 i ty of late-dha 00:00: 00[place] (VITAFOL FE 00 :00 daily. Medica l PLUS) 90 mg Branch iron- 1 mg-200 mg Cap Immunizations Ordered Filled Immunization Date Status Comments [facility] e Immunization Name Name [facility] 2022-02-23 Completed University of 00:00:00 [facility] TD 2022-02-23 Completed University of 00:00:00 [facility] TDAP 2022-02-23 Completed University of 00:00:00 [facility] TDAP 2022-02-23 Completed University of 00:00:00 [facility] TDAP 2022-02-23 Completed University of 00:00:00 [facility] TDAP 2022-02-23 Completed University of 00:00:00 [facility] TDAP 2022-02-23 Completed University of 00:00:00 [facility] TDAP 2022-02-23 Completed University of 00:00:00 [facility] TDAP 2022-02-23 Completed University of 00:00:00 [facility] Influenza Virus 2021-09-01 Completed Universit y of Vaccine Quad IM, 00:00:00 [place] Me dical Preserv and ABX Branch Free 6 MO-64 YRS Influenza Virus 2021-09-01 Completed Universit y of Vaccine [place] IM, 00:00:00 [place] [facility] [place] Preserv and ABX Branch Free 6 MO-64 YRS Influenza Virus 2021-09-01 Completed Universit y of Vaccine [place] IM, 00:00:00 [place] Me dical Preserv and ABX Branch Free [...] y of Vaccine Quad .5 mL 00:00:00 [place] [facility] IM 6+ MO Branch Influenza Virus 2020-08-16 Completed Universit y of Vaccine [place] .5 mL 00:00:00 [place] [facility] IM 6+ MO Branch TDAP 2020-08-09 Completed University of 00:00:00 [place] [facility] [place] TDAP 2020-08-09 Completed University of 00:00:00 [facility] TDAP 2020-08-09 Completed University of 00:00:00 [place] [facility] TDAP 2020-08-09 Completed University of 00:00:00 [place] [facility] TDAP 2020-08-09 Completed University of 00:00:00 [place] [facility] TDAP 2020-08-09 Completed University of 00:00:00 [place] [facility] TDAP 2020-08-09 Completed University of 00:00:00 [place] [facility] TDAP 2020-08-09 Completed University of 00:00:00 [place] [facility] TDAP 2020-08-09 Completed University of 00:00:00 [facility] Vital Signs Vital Name Observation Time Observation Value Comments Source Systolic blood 2022-04-18 16:35:00 91 mm[Hg] Univer sity of pressure [facility] Diastolic blood 2022-04-18 16:35:00 60 mm[Hg] Unive rsity of [facility] Heart rate 2022-04-18 16:35:00 73 /min [facility] Body temperature 2022-04-18 16:35:00 36.78 [place] [facility] Body height 2022-04-18 16:35:00 157.5 cm [facility] Body weight 2022-04-18 16:35:00 115.667 kg [facility] BMI 2022-04-18 16:35:00 46.64 kg/m2 [facility] Systolic blood 2022-04-07 12:15:00 103 mm[Hg] Univer sity of [facility] Diastolic blood 2022-04-07 12:15:00 56 mm[Hg] Unive rsity of pressure [facility] Body temperature 2022-04-07 12:15:00 36.61 Erum [facility] Oxygen saturation in 2022-04-07 12:15:00 98 /min [facility] Arterial blood by [facility] Pulse oximetry Branch Heart rate 2022-04-07 09:15:00 66 /min [facility] Respiratory rate 2022-04-07 09:15:00 16 /min [facility] Body height 2022-04-06 10:35:00 157.5 cm Universi ty [facility] Body weight 2022-04-06 10:35:00 122.018 kg Universi ty of [place] [facility] BMI 2022-04-06 10:35:00 49.20 kg/m2 Universi ty of [facility] Respiratory rate 2022-04-06 14:51:00 25 /min Univ ersity of [facility] Heart rate 2022-04-06 12:30:00 90 /min Universi ty of [facility] Oxygen saturation in 2022-04-06 12:30:00 99 /min University of Arterial blood by [facility] Pulse oximetry Branch Systolic blood 2022-04-06 12:00:00 122 mm[Hg] Univer sity of pressure [facility] Diastolic blood 2022-04-06 12:00:00 78 mm[Hg] Unive rsity of pressure [facility] Body temperature 2022-04-06 12:00:00 37.11 [place] Univ ersity of [facility] Respiratory rate 2022-04-06 12:00:00 16 /min Univ ersity of [facility] Body height 2022-04-06 10:35:00 157.5 cm Universi ty of [place] [facility] [place] Body weight 2022-04-06 10:35:00 122.018 kg Universi ty of [place] [facility] BMI 2022-04-06 10:35:00 49.20 kg/m2 Universi ty of [place] [facility] Systolic blood 2022-04-04 19:28:00 124 mm[Hg] Univer sity of pressure [place] [facility] Diastolic blood 2022-04-04 19:28:00 73 mm[Hg] Unive rsity of [facility] Heart rate 2022-04-04 19:28:00 101 /min Universi ty of [place] [facility] Body temperature 2022-04-04 19:28:00 36.89 [place] Univ ersity of [facility] Respiratory rate 2022-04-04 19:28:00 18 /min Univ ersity of [facility] Body height 2022-04-04 19:28:00 157.5 cm Universi ty of [place] [facility] [place] Body weight 2022-04-04 19:28:00 122.018 kg Universi ty of [place] [facility] [place] BMI 2022-04-04 19:28:00 49.20 kg/m2 Universi ty of [place] [facility] Procedures Procedure Date / Time Performed Performing Clinician Sourc e CBC WITH DIFF 2022-04-07 09:23:00 Maria Ines Mir Rosado Ocate o [facility] CBC WITH DIFF 2022-04-07 09:23:00 Mir Spann Ocate o [facility] CENTRAL NEURAXIAL 2022-04-06 14:08:02 Renu Pinedo [facility] SECTION 2022-04-06 12:55:00 Mir Spann [facility] SECTION 2022-04-06 12:55:00 Maria Ines Mir Rosado [facility] HOSPITAL ADMISSION 2022-04-06 05:01:00 Doctor Unassigned, No [facility] 2022-04-05 20:30:00 Mir Spann [facility] RHO (D) IMMUNE 2022-04-05 20:30:00 Mir Spann [facility] ASSIGNMENT OF BENEFITS 2022-04-05 20:01:26 Doctor Unassigned, No [facility] POCT URINALYSIS W/O 2022-04-04 00:00:00 Mir Spann [facility] Encounters Start End Encounter Admission Attending Care Care Encounter Source Date/Time Date/Time Type Type Clinicians Facility Department ID 2022-04-06 Outpatient X [facility] [id number] Univers 05:41:48 [facility] 2022-04-05 Outpatient P MIR SPANN [facility] [id number] Univers [facility]22-04-03 Outpatient X [facility] [id number] Univers 21:06:15 [facility] 2021-09-16 Outpatient [facility] [id number] Univers 21:02:53 [facility] 2022-05-04 2022-05-04 Outpatient Renu HILLMAN [facility] [id number] Univers 14:00:00 14:00:00 MAURA [facility] 2022-04-18 2022-04-18 Outpatient R MIR SPANN [facility] [id number] Univers 13:45:00 13:45:00 [facility] 2022-04-18 2022-04-18 Outpatient R MIR SPANN [facility] [id number] Univers 11:00:00 11:48:25 ity of [facility] 2022-04-18 2022-04-18 Routine Mir Spann [facility] 1.2.046.801 [id number] Univers 11:00:00 11:48:25 Cam [place] 350.1.13.10 ity of Visit [place]2.7.2.[place] [phone] Ms dical NAL [address] [place] [address] 2022-04-06 2022-04-07 Inpatient P MIR SPANN [facility] [id number] Univers 05:26:00 13:20:00 ity of [facility] 2022-04-06 2022-04-07 Hospital Mir Spann [facility] 1.2.840.114 [id number] Univers 05:26:00 13:20:00 Encounter Cam [place] 350.1.13.10 ity of [place] 4.2.7.2.[place] [id number] [facility] sherie 083 Branch 2022-04-06 2022-04-06 Anesthesia [place], Renu [facility] 1.2.840.1 [id number] Univers 08:12:00 10:00:00 Event Palak Angelo 350.1.13.10 ity of [place] 4[place]2.7.2.[place] [id number] Medi sherie 013 [place] 2022-04-06 2022-04-06 Surgery Mir Spann [facility] 1.2.257.913 [id number] Univers 08:00:00 09:28:00 Cam [place] 350.1.13.10 i ty of [place] 4[place]2.7.2.[place] [id number] [facility] sherie 013 Branch 2022-04-06 2022-04-06 Orders Doctor PALAK 1.2.840.114 [id number] Univers 00:00:00 00:00:00 Only Unassigned, JYOTI 350.1.13.10 ity of [place] [facility] 4.2.7.2.686 Simón as [phone] [facility] sherie 009 Branch 2022-04-052022-04-05 Laboratory Only, Adc Test [facility] 1.2.840. 114 [id number] Univers 15:45:00 16:00:00 Only Mir SpannMEAGAN 350.1.13.10 ity of [place] 4[place]2.7.2.[place] [id number] [address] 2022-04-05 2022-04-05 Outpatient R MIR SPANN [facility] [id number] Univers 15:45:00 15:45:00 ity of [facility] 2022-04-05 2022-04-05 Associate Curator Bola, Adc Lab Main [facility] 1.2.8 40.114 [id number] Univers 15:15:00 15:30:00 Visit Mir SpannMEAGAN 350.1.13.10 ity of [place].7.2.[place] [id number] Ms dical NAL 353 [facility] 2022-04-05 2022-04-05 Orders Doctor PALAK 1.2.840.114 [id number] Univers 00:00:00 00:00:00 Only Unassigned, JYOTI 350.1.13.10 [facility] 4.2.7.2.686 [place] as [id number] [address] 2022-04-04 2022-04-04 Outpatient R MIR SPANN [facility] [id number] Univers 15:15:00 15:15:00 ity of [facility] 2022-04-04 2022-04-04 Routine Spann [facility] 1.2.692.370 [id number] Univers 14:15:00 14:56:42 Alonzo APOLINARMEAGAN 350.1.13.10 ity of Visit [place] 4[place]2.7.2.[place] [id number] Ms dical NAL 134 [facility] 2022-04-04 2022-04-04 Outpatient R MIR SPANN [facility] [id number] Univers 14:15:00 14:56:42 ity of [facility] 2022-04-03 2022-04-03 Emergency Spann [facility] 1.2.840.114 [id number] Univers 15:47:00 20:35:00 Cam [place] 350.1.13.10 i ty of [place] 4.2.7.2.[place] [id number] [facility] 083 [place] 2022-04-03 2022-04-03 Outpatient X MIR SPANN [facility] [id number] Univers 15:47:00 20:35:00 ity of [facility] 2022-04-03 2022-04-03 Orders Doctor PALAK 1.2.840.114 [id number] Univers 00:00:00 00:00:00 Only Unassigned, JYOTI 350.1.13.10 ity of [place] [facility] 4.2.7.2.686 Simón as [id number] [facility] 009 [place] 2022-03-28 2022-03-28 Outpatient R MIR SPANN [facility] [id number] Univers 13:45:00 14:19:31 ity of [facility] 2022-03-28 2022-03-28 Routine Maria Ines [facility] 1.2.201.310 [id number] Univers 13:45:00 14:19:31 Alonzo MARQUIS 350.1.13.10 ity of Visit [place] 4[place]2.7.2.[place] [id number] Ms dical NAL 134 [facility] 2022-03-21 2022-03-21 Associate Curator 2, Adc Lab [facility] 1.2.840.114 [id number] Univers 09:15:00 09:30:00 Visit Maura Hillman 350.1.13.10 ity of [facility] 4.2.7.2.[place] [id number] Ms dical NAL 353 [facility] 2022-03-21 2022-03-21 Outpatient R RAFY [facility] [id number] Univers 08:30:00 09:13:50 MAURA ity of [facility] 2022-03-21 2022-03-21 Routine Rafy [facility] 1.2.011.949 [id number] Univers 08:30:00 09:13:50 Maura MARQUIS 350.1.13.10 ity of Visit [place] 4[place]2.7.2.[place] [id number] Ms dical NAL [address] [place] [address] 2022-03-21 2022-03-21 Orders Doctor PALAK 1.2.840.114 [id number] Univers 00:00:00 00:00:00 Only Unassigned, JYOTI 350.1.13.10 ity of [place] [facility] 4.2.7.2.686 Simón as [phone] [address] 2022-03-09 2022-03-09 Outpatient R MIR SPANN [facility] [id number] Univers 13:45:00 14:20:17 ity of [facility] 2022-03-09 2022-03-09 Routine Maria Ines [facility] 1.2.923.191 [id number] Univers 13:45:00 14:20:17 Cam [place] 350.1.13.10 ity of Visit [place] 4.2.7.2.[place] [id number] Ms dical NAL [address] [place] [address] 2022-02-23 2022-02-23 Routine Rafy AKJACQUELYN 1.2.997.080 [id number] Univers 09:30:00 09:45:00 Maura [place] 350.1.13.10 ity of Visit [place] 4[place]2.7.2.[place] [id number] Ms dical NAL [address] [place] [address] 2022-02-23 2022-02-23 Outpatient R RAFY [facility] [id number] Univers 09:30:00 09:30:00 MAURA ity of [facility] 2022-02-09 2022-02-09 Outpatient R MARIA INES MIR [facility] [id number] Univers 11:15:00 12:02:52 ity of [facility] 2022-02-09 2022-02-09 Routine Maria Ines Mir [facility] 1.2.375.162 [id number] Univers 11:15:00 12:02:52 Cam [place] 350.1.13.10 ity of Visit [place] 4[place]2.7.2.[place] [id number] Ms dical NAL [address] [place] [address] 2022-01-30 2022-01-30 Associate Curator Ultrasound, Ang-Mfm [facility] 1.2 .840.114 [id number] Univers 15:15:00 15:45:59 Visit Parker Laura Svitlana ROOM INSPECTOR 350.1. 13.10 ity [facility] 4.2.7.2.686 Simón as MATERNAL [phone] Med ical & CHILD [address] [place] [address] 2022-01-30 2022-01-30 Outpatient P PARKER [facility] [id number] Univers 15:15:00 15:15:00 SKYLA it y of [place] [facility] 2022-01-25 2022-01-25 Outpatient R MIR SPANN [facility] [id number] Univers 15:45:00 15:45:00 ity [facility] 2022-01-18 2022-01-18 Associate Curator 2, Adc Lab [facility] 1.2.840.114 [id number] Univers 10:45:00 12:58:32 Visit Raiza Ansari 350.1.13.10 ity of Mir Spann [facility] 4.2.7.2.686 [place] PROFESSIO [id number] [facility] 353 [facility] 2022-01-18 2022-01-18 Outpatient R MIR SPANN [facility] [id number] Univers 10:45:00 10:45:00 ity [facility] 2022-01-17 2022-01-17 Outpatient P [facility] [id number] Univers 11:15:00 11:15:00 ity of [facility] 2022-01-04 2022-01-04 Routine Rayf [facility] 1.2.563.322 [id number] Univers 10:45:00 11:00:00 Maura MARQUIS 350.1.13.10 ity of Visit [facility] 4.2.7.2.[place] [phone] Ms dical [facility] 134 [facility] 2022-01-04 2022-01-04 Outpatient R RAFY [facility] [id number] Univers 10:45:00 10:45:00 [facility] 2021-12-07 2021-12-07 Outpatient R MIR SPANN [facility] [id number] Univers 10:30:00 11:37:36 ity of [facility] 2021-12-07 2021-12-07 Routine Mir Spann [facility] 1.2.163.654 [id number] Univers 10:30:00 11:37:36 Cam [place] 350.1.13.10 ity of Visit [place] 4.2.7.2.[place] [id number] Ms dic[address] 2021-12-06 2021-12-06 Telephone Mir Spann [facility] 1.2.840.114 [id number] Univers 00:00:00 00:00:00 Cam [place] 350.1.13.10 i ty of [place] 4.2.7.2.[place] [id number] [address] 2021-11-29 2021-11-29 Associate Curator Ultrasound, [facility] 1.2 .840.114 [id number] Univers 10:15:00 11:15:00 Visit Mir Spann [place] 350.1.13.10 ity of [place] 4.2.7.2.[place] [id number] [address] 2021-11-29 2021-11-29 Outpatient R MIR SPANN [facility] [id number] Univers 10:15:00 10:15:00 ity of [facility] 2021-11-24 2021-11-24 Outpatient R RAFY [facility] [id number] Univers 10:45:00 10:45:00 MAURA itjuan [facility] 2021-10-27 2021-10-27 Outpatient R MIR SPANN [facility] [id number] Univers 11:15:00 12:05:42 ity of [facility] 2021-10-27 2021-10-27 Routine Mir Spann [facility] 1.2.034.179 [id number] Univers 11:13:50 12:05:42 Cam [place] 350.1.13.10 ity of Visit [place] 4.2.7.2.[place] [id number] Ms dical NAL 134 [facility] 2021-10-27 2021-10-27 Letter Mir Spann [facility] 1.2.928.730 [id number] Univers 00:00:00 00:00:00 (Out) Alonzo MARQUIS 350.1.13.10 i ty of [place] 4.2.7.2.[place] [id number] Ms dical NAL 134 [facility] 2021-09-29 2021-09-29 Outpatient R RAFY [facility] [id number] Univers 10:00:00 10:37:05 MAURA ity [facility] 2021-09-29 2021-09-29 Routine Rafy [facility] 1.2.599.375 [id number] Univers 09:56:44 10:37:05 Maura MARQUIS 350.1.13.10 ity of Visit [place] 4.2.7.2.[place] [id number] Ms dical NAL [address] [place] [address] 2021-09-29 2021-09-29 Associate Curator 2, Adc Lab [facility] 1.2.840.114 [id number] Univers 08:48:03 09:16:30 Visit Mir Spann 350.1.13.10 ity of [place] 4.2.7.2.[place] [id number] Ms dical NAL 353 [facility] 2021-09-01 2021-09-01 Routine Mir Spann [facility] 1.2.388.664 [id number] Univers 16:01:18 17:17:31 Alonzo Marquis 350.1.13.10 ity of Visit [place] 4.2.7.2.[place] Profess[place] [id number] Ms dical nal 134 [facility] 2021-09-01 2021-09-01 Outpatient R MIR SPANN [facility] [id number] Univers 16:15:00 16:15:00 ity of [facility] 2021-09-01 2021-09-01 Orders Doctor CID 1.2.840.114 [id number] Univers 00:00:00 00:00:00 Only Unassigned, JYOTI 350.1.13.10 ity of [place] [facility] 4.2.7.2.686 Simón as [id number] [address] 2021-08-22 2021-08-22 Telephone Mir Spann [facility] 1.2.840.114 [id number] Univers 00:00:00 00:00:00 Cam [place] 350.1.13.10 i ty of [place] 4.2.7.2.[place] Profess[place] [id number] Ms dical nal 134 [facility] 2021-08-18 2021-08-18 Associate Curator 2, Adc Lab [facility] 1.2.840.114 [id number] Univers 15:51:13 16:06:13 Visit Mir Spann Alonzo Marquis 350.1.13.10 ity of [place] 4.2.7.2.[place] Profess[place] [phone] Ms dical nal 353 [facility] 2021-08-18 2021-08-18 Initial [facility] 1.2.328.141 [id number] Univers 14:32:48 15:47:37 Alonzo [place] 350.1.13.10 ity of Visit [place] 4.2.7.2.[place] Profess[place] [id number] Ms dicnh nal 134 [facility] 2021-08-18 2021-08-18 Outpatient R MIR SPANN [facility] [id number] Univers 14:30:00 14:30:00 ity of [facility] 2021-08-18 2021-08-18 Orders Doctor CID 1.2.840.114 [id number] Univers 00:00:00 00:00:00 Only Unassigned, JYOTI 350.1.13.10 ity of [place] [facility] 4.2.7.2.686 Simón as [id number] [address] 2021-03-28 2021-03-28 Outpatient R RAFY [facility] [id number] Univers 08:00:00 08:00:00 MAURA ity of [facility] 2021-02-17 2021-02-17 Letter Clinic, [facility] 1.2.361.631 [id number] 00:00:00 00:00:00 (Out) [facility] Y HEALTH 350.1.13.10 Gastroenter CLINICS 4.2.7.2.686 ology [id number] 2021-02-17 2021-02-17 Letter Clinic, [facility] 1.2.061.841 [id number] Univers 00:00:00 00:00:00 (Out) [facility] Y HEALTH 350.1.13.10 i ty of Gastroenter CLINICS 4.2.7.2.686 [facility] [id number] [facility] 071 [place] 2021-02-08 2021-02-08 [facility] 1.2.840.114 [id number] 00:00:00 00:00:00 Outreach Santhosh PRIMARY 350.1.13.10 [place] CARE 4.2.7.2.686 PAVILLION [id number] 388 2021-02-08 2021-02-08 Patient Jase [facility] 1.2.840.114 [id number] Univers 00:00:00 00:00:00 Outreach Santhosh PRIMARY 350.1.13.10 i ty of [place] CARE 4.2.7.2.[place] [id number] Ms dical [address] [place] 2021-01-18 2021-01-18 Laboratory Lab, [facility] 1.2.840.114 [id number] 18:22:09 18:42:09 Only Fam Pob I Health 350.1.13.10 [place] 4.2.7.2.686 Professio [phone] nal [facility] Office [address] 2021-01-18 2021-01-18 Laboratory Lab, [facility] Fam Pob I [facility] 1.2. 840.114 [id number] Univers 18:22:09 18:42:09 Only [facility] 350.1.13.10 ity of [place] 4.2.7.2.686 Simón as Professio [id number] [facility] 044 [place] Office [address] 2021-01-18 2021-01-18 Outpatient R LASHELL [facility] [id number] Univers 18:20:00 18:20:00 SUKHDEEP amelia o f [facility] 2021-01-18 2021-01-18 Letter Doctor PALAK 1.2.840.114 [id number] 00:00:00 00:00:00 (Out) Unassigned, JYOTI 350.1.13.10 [place] [facility] 4.2.7.2.686 [id number] 2021-01-18 2021-01-18 Letter Doctor PALAK 1.2.840.114 [id number] Univers 00:00:00 00:00:00 (Out) Unassigned, JYOTI 350.1.13.10 ity of [place] [facility] 4.2.7.2.686 Simón as [id number] [address] 2021-01-17 2021-01-17 [facility] 1.2.840.114 [id number] 13:00:00 23:59:00 Encounter Raiza Marquis 350.1.13.10 [place] 4.2.7.2.686 [place] [id number] 2021-01-17 2021-01-17 [facility] 1.2.840.114 [id number] [facility] 13:00:00 23:59:00 Encounter Raiza Marquis 350.1.13.10 ity of [place] 4.2.7.2.686 [place] [facility] [id number] [address] 2021-01-17 2021-01-17 Outpatient R [facility] [id number] Univers 00:00:00 00:00:00 RAIZA cisneros of [facility] 2021-01-17 2021-01-17 Orders Doctor PALAK 1.2.840.114 [id number] 00:00:00 00:00:00 Only Unassigned, JYOTI 350.1.13.10 [place] [facility] 4.2.7.2.686 [id number] 2021-01-17 2021-01-17 Orders Doctor PALAK 1.2.840.114 [id number] Univers 00:00:00 00:00:00 Only Unassigned, JYOTI 350.1.13.10 ity of [place] [facility] 4.2.7.2.686 Simón as [phone] [address] 2021-01-05 2021-01-05 [facility] [id number] [facility] 00:00:00 00:00:00 RAIZA cisneros [facility] 2021-01-03 2021-01-03 [facility] [id number] Univers 00:00:00 00:00:00 RAIZA cisneros [facility] 2020-12-30 2020-12-30 [facility] 1.2.840.114 [id number] 11:36:59 12:01:21 Visit Raiza [facility] [id number] Mario 4.2.7.2.686 Professio [phone] [address] 2020-12-30 2020-12-30 [facility] 1.2.840.114 [id number] Univers 11:36:59 12:01:21 Visit Raiza [facility] [id number] it y of [place] 4.2.7.2.686 Simón as Professio [phone] Ms dic[address] 2020-12-30 2020-12-30 [facility] [id number] Univers 11:30:00 11:30:00 RAIZA cisneros [facility] 2020-12-27 2020-12-27 Outpatient R [facility] [id number] Univers 16:20:00 16:20:00 ity of [facility] 2020-09-28 2020-09-28 [facility] [id number] Univers 09:01:29 10:11:33 Maura Marquis [id number] it[place] [phone] [facility] 134 [facility] 2020-09-28 2020-09-28 [facility] [id number] Univers 09:00:00 09:00:00 MAURA graciejuan [facility] 2020-09-28 2020-09-28 Orders Doctor PALAK [id number] Univers 00:00:00 00:00:00 Only Unassigned, JYOTI [id number] ity of [place] [facility] 4.2.7.2.686 Simón as [phone] [facility] [address] [place] 2020-09-20 2020-09-20 Outpatient R RAFY [facility] [id number] Univers 11:30:00 11:30:00 MAURA ity [facility] 2020-08-31 2020-08-31 Nurse Nurse, [facility] [id number] Univers 14:08:41 14:48:37 Visit Mir Spann Alonzo [place] [id number] it[place] [phone] [address] 2020-08-31 2020-08-31 Outpatient R SPANN [facility] [id number] Univers 14:00:00 14:00:00 ity of [facility] 2020-08-25 2020-08-27 [facility] [id number] Univers 05:45:00 17:50:00 Encounter Cam [place] [id number] it[place] of [place] [phone] [facility] [address] [place] 2020-08-27 2020-08-27 Outpatient R MARIA INES [facility] [id number] Univers 08:30:00 08:30:00 ity of [facility] 2020-08-23 2020-08-23 Routine Maria Ines [facility] [id number] Univers 09:46:32 10:39:23 Cam [place] 350.1.13.10 ity [place] [phone] Ms dic[address] 2020-08-23 2020-08-23 Outpatient R MARIA INES [facility] [id number] Univers 09:45:00 09:45:00 ity [facility] 2020-08-16 2020-08-16 Laboratory Lab, Adc Fam Pob I [facility] 1.2. [id number] [id number] Univers 11:34:21 11:54:21 Only Mir Spann [facility] 350.1.13.10 ity of [place] 4.2.7.2.686 Simón as Professio [phone] Ms dical nal [address] [place] Office [facility] 2020-08-16 2020-08-16 Routine Mir Spann [facility] [id number] Univers 09:39:12 11:18:04 Cam [place] 350.1.13.10 ity [place] [phone] Ms dical nal 134 [facility] 2020-08-16 2020-08-16 Outpatient R MIR SPANN [facility] [id number] Univers 09:45:00 09:45:00 ity of [facility] 2020-08-16 2020-08-16 Letter Doctor CID 1.2.840.114 [id number] Univers 00:00:00 00:00:00 (Out) Unassigned, JYOTI 350.1.13.10 ity of [place] [facility] 4.2.7.2.686 Simón as [phone] [address] 2020-08-09 2020-08-09 Associate Curator 2, [facility] Lab [facility] 1.2.840.114 [id number] Univers 10:17:43 10:32:43 Visit Mir Spann 350.1.13.10 ity of [place] [phone] Ms dical nal 353 [facility] 2020-08-09 2020-08-09 Initial Mir Spann [facility] [id number] Univers 08:49:20 10:06:37 Alonzo [place] 350.1.13.10 ity of [place] [phone] Ms dical nal 134 [facility] 2020-08-09 2020-08-09 Outpatient R MIR SPANN [facility] [id number] Univers 09:00:00 09:00:00 ity of [facility] 2020-08-09 2020-08-09 Orders Doctor PALAK 1.2.840.114 [id number] Univers 00:00:00 00:00:00 Only Unassigned, JYOTI 350.1.13.10 ity of [place] [facility] 4.2.7.2.686 Simón as [phone] [place] [address] Branch Orders Doctor PALAK 1.2.840.114 [id number] Univers 00:00:00 00:00:00 Only Unassigned, JYOTI 350.1.13.10 ity of [place] [facility] 4.2.7.2.686 Simón as [phone] [place] [address] Branch Results Test Description Test Time Test Comments Results Result Comments Source CBC with Differential 2022-04-07 09:48:14 Test Item Value Reference Range Interpretation Comme nts WBC (test code = 6690-2) See_Comment [A utomated message] The system which ge nerated this result transmit paulo reference range: 4.30 - 1 1.10 10*3/?L. The reference r silvana was not used to interpr et this result as normal/abnor mal. RBC (test code = 789-8) See_Comment L [Au tomated message] The system which ge nerated this result transmit paulo reference range: 3.93 - 5 .25 10*6/?L. The reference r silvana was not used to interpr et this result as normal/abnor mal. HGB (test code = 718-7) 10.4 g/dL 11.6-15.0 L HCT (test code = 4544-3) 31.8 % 35.7-45.2 L MCV (test code = 787-2) 92.7 fL 80.6-95.5 MCH (test code = 785-6) 30.3 pg 25.9-32.8 MCHC (test code = 786-4) 32.7 g/dL 31.6-35.1 RDW-SD (test code = 40190-8) 49.1 fL 39.0-49.9 RDW-CV (test code = 788-0) 14.9 % 12.0-15.5 PLT (test code = 777-3) See_Comment [Au tomated message] The system which ge nerated this result transmit paulo reference range: 166 - 35 8 10*3/?L. The reference range was not used to interpret th is result as normal/abnormal . MPV (test code = 73967-0) 11.3 fL 9.5-12.9 NRBC/100 WBC (test code = See_Comment [ Automated message] The 6148992723) system which ge nerated this result transmit paulo reference range: 0.0 - 10 .0 /100 WBCs. The reference r silvana was not used to interpr et this result as normal/abnor mal. NRBC x10^3 (test code = <0.01 See_Comment [Au tomated message] The 7629525958) system which ge nerated this result transmit paulo reference range: 10*3/?L. The reference range was not u sed to interpret this result as normal/abnormal . GRAN MAT (NEUT) % (test code 62.2 % = 770-8) IMM GRAN % (test code = 0.60 % [id number]) LYMPH % (test code = 736-9) 28.9 % MONO % (test code = 5905-5) 6.8 % EOS % (test code = 713-8) 1.1 % BASO % (test code = 706-2) 0.4 % GRAN MAT x10^3(ANC) (test 6.12 10*3/uL 1.88-7.09 code = 6177756480) IMM GRAN x10^3 (test code = 0.06 10*3/uL 0.00-0.06 1976117792) LYMPH x10^3 (test code = 2.85 10*3/uL 1.32-3.29 731-0) MONO x10^3 (test code = 0.67 10*3/uL 0.33-0.92 742-7) EOS x10^3 (test code = 0.11 10*3/uL 0.03-0.39 711-2) BASO x10^3 (test code = 0.04 10*3/uL 0.01-0.07 704-7) Lab Interpretation (test Abnormal code = 67165-0) [facility] with [id number] 09:48:14 Test Item Value Reference Range Interpretation Comments WBC (test code = See_Comment [Automated 6690-2) message] The sy stem which generated this result transmitted reference range : 4.30 - 11.10 10*3/?L. The reference range was not used to interpret this result as normal/abnormal . RBC (test code = See_Comment L [Automated 789-8) message] The sy stem which generated this result transmitted reference range : 3.93 - 5.25 10*6/?L. The reference range was not used to interpret this result as normal/abnormal . HGB (test code = 10.4 g/dL 11.6-15.0 L 718-7) HCT (test code = 31.8 % 35.7-45.2 L 4544-3) MCV (test code = 92.7 fL 80.6-95.5 787-2) MCH (test code = 30.3 pg 25.9-32.8 785-6) MCHC (test code = 32.7 g/dL 31.6-35.1 786-4) RDW-SD (test code = 49.1 fL 39.0-49.9 24175-2) RDW-CV (test code = 14.9 % 12.0-15.5 788-0) PLT (test code = See_Comment [Automated 777-3) message] The sy stem which generated this result transmitted reference range : 166 - 358 10*3/ ?L. The reference r silvana was not used to interpret this result as normal/abnormal . MPV (test code = 11.3 fL 9.5-12.9 93891-7) NRBC/100 WBC (test See_Comment [Automat ed code = 4801465939) message] The system which generated this result transmitted reference range : 0.0 - 10.0 /100 WBCs. The refer ence range was not u sed to interpret th is result as normal/abnormal . NRBC x10^3 (test code <0.01 See_Comment [Auto mated = 1049565273) message] The s ystem which generated this result transmitted reference range : 10*3/?L. The reference range was not used to interpret this result as normal/abnormal . GRAN MAT (NEUT) % 62.2 % (test code = 770-8) IMM GRAN % (test code 0.60 % = 0248277051) LYMPH % (test code = 28.9 % 736-9) MONO % (test code = 6.8 % 5905-5) EOS % (test code = 1.1 % 713-8) BASO % (test code = 0.4 % 706-2) GRAN MAT x10^3(ANC) 6.12 10*3/uL 1.88-7.09 (test code = 4924714476) IMM GRAN x10^3 (test 0.06 10*3/uL 0.00-0.06 code = 1344102450) LYMPH x10^3 (test code 2.85 10*3/uL 1.32-3.29 = 731-0) MONO x10^3 (test code 0.67 10*3/uL 0.33-0.92 = 742-7) EOS x10^3 (test code = 0.11 10*3/uL 0.03-0.39 711-2) BASO x10^3 (test code 0.04 10*3/uL 0.01-0.07 = 704-7) Lab Interpretation Abnormal (test code = 05746-9) [facility] (D) IMMUNE [id number] 18:17:14 Test Item Value Reference Range Interpretation Comments RHIG CANDIDATE? No- see comment Patient i s not a (test code = candidate for R hIg- 5055) Patient is Rh Positive.Perfor med at [facility] Laboratory [facility] Blood [address] [place] [address] Free: [phone] A No. [id number] [facility] (D) IMMUNE [id number] 18:17:14 Test Item Value Reference Range Interpretation Comments RHIG CANDIDATE? No- see comment Patient i s not a (test code = candidate for R hIg- 5055) Patient is Rh Positive.Perfor med at [facility] Laboratory [facility] Blood [address] [place], [place] [id number] Free: [phone] A No. [id number] [facility] URINALYSIS W/O SPECIFIC [id number] 19:30:00 Test Item Value Reference Range Interpretation Comments [...] code = 3257) N/A Negative - Negative [facility]
--- NOTE | 2022-11-06 13:07 | RAD REPORT ---
EXAM DESCRIPTION: RAD - Wrist Right 3 View - 11/06/2022 12:11 pm CLINICAL HISTORY: PAINover several months, acute trauma episode prior to admission COMPARISON: No comparisons FINDINGS: No fracture is identified. There is no dislocation or periosteal reaction noted. Radiocarp al joint space may be slightly narrowed though this is a subtle finding. The lunate bone shows an inc rease in density compared to the adjacent carpal bones. No alignment abnormality. The adjacent joint spaces are normal. No foreign body or other soft tissue abnormality. IMPRESSION: No fracture or acute wrist finding identifiable. 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
--- NOTE | 2022-11-06 13:39 | EDPHYS ---
Physician Documentation [facility] Name: Amy Maynard Age: 22 yrs Sex: Female : 2000 Arrival Date: 11/06/2022 Time: 11:29 Bed IW1 Private MD: ED Physician Joby Gray HPI: 11/06 15:54 This 22 yrs old Female presents to ER via Ambulatory with complaints of Hand kb Pain, Wrist Pain. 15:54 The patient has not recently seen a physician. kb 15:54 The patient or guardian reports pain. The complaints affect the right wrist diffusely. kb Context: The problem was sustained at home, resulted from an unknown cause. Onset: The symptoms/episode began/occurred 6 month(s) ago, and became worse today. Modifying factors: The symptoms are alleviated by nothing, the symptoms are aggravated by movement. Associated signs and symptoms: The patient has no apparent associated signs or symptoms. The patient has not experienced similar symptoms in the past. Pt reports right wrist pain since April without injury. States the pain got worse when her daughter fell on it this morning. States it feels tight at times. 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 - Social history:: Smoking status: Patient denies any tobacco usage or history of. ROS: 15:53 Constitutional: Negative for fever, chills, and weight loss. kb 15:53 MS/extremity: Positive for pain, swelling, tenderness, of the right wrist. 15:53 All other systems are negative. Exam: 15:53 Constitutional: This is a well developed, well nourished patient who is awake, alert, kb and in no acute distress. Head/Face: Normocephalic, atraumatic. ENT: Moist Mucous membranes Cardiovascular: Regular rate and rhythm with a normal S1 and S2. No gallops, murmurs, or rubs. No pulse deficits. Respiratory: Respirations even and unlabored. No increased work of breathing. Talking in full sentences Skin: Warm, dry with normal turgor. Normal color. MS/ Extremity: Pulses equal, no cyanosis. Neurovascular intact. Full, normal range of motion. Neuro: Awake and alert, GCS 15, oriented to person, place, time, and situation. Moves all extremities. Normal gait. Psych: Awake, alert, with orientation to person, place and time. Behavior, mood, and affect are within normal limits. Vital Signs: 11:43 Pulse 101; Resp 18; Temp 98.6; Pulse Ox 100% ; Pain 10/10; jh5 11:46 BP 129 / 85; Pulse 94; Resp 18; Temp 98.6; Pulse Ox 100% ; Weight 113.4 kg; Height 5 5 ft. 1 in. (154.94 cm); Pain 10/10; 12:49 BP 122 / 88; Pulse 90; Resp 18; Pulse Ox 100% ; jh5 11:46 Body Mass Index 47.24 (113.40 kg, 154.94 cm) 5 MDM: 11:46 Patient medically screened. kb 15:53 Data reviewed: vital signs, nurses notes. Data interpreted: Pulse oximetry: on room air kb is 100 %. Interpretation: normal. Counseling: I had a detailed discussion with the patient and/or guardian regarding: the historical points, exam findings, and any diagnostic results supporting the discharge/admit diagnosis, radiology results, the need for outpatient follow up, a orthopedic surgeon, to return to the emergency department if symptoms worsen or persist or if there are any questions or concerns that arise at home. 11/06 11:46 Order name: Wrist Right 3 View XRAY; Complete Time: 13:21 kb Administered Medications: No medications were administered Disposition: 21:59 Co-signature as Attending Physician, Joby LANDRY was immediately available on-site ms3 in the Emergency Department for consultation in the care of the patient. . Disposition Summary: 11/06/22 13:38 Discharge Ordered Location: Home kb Condition: Stable kb Diagnosis - Pain in right wrist kb Followup: kb - With: Emergency Department - When: As needed - Reason: Worsening of condition Followup: kb - With: Private Physician - When: 2 - 3 days - Reason: Recheck today's complaints, Continuance of care, Re-evaluation by your physician Discharge Instructions: - Discharge Summary Sheet kb - Wrist Pain, Adult, Gfou-gj-Rire kb Forms: - Medication Reconciliation Form kb - Thank You Letter kb - Antibiotic Education kb - Prescription Opioid Use kb Prescriptions: - Prednisone 20 mg Oral Tablet - take 1 tablet by ORAL route once daily for 5 days; 5 tablet; Refills: 0, kb Product Selection Permitted Signatures: Dispatcher [employer] Fang Lawrence FNP-C FNP-Ckb Sims, Marcus, DO DO ms3 Bela Winslow RN RN jh5 Corrections: (The following items were deleted from the chart) 15:55 15:54 The patient or guardian reports pain, kb kb
--- NOTE | 2022-11-06 13:39 | ER ---
Nurse's Notes [facility] Name: Amy Maynard Age: 22 yrs Sex: Female : 2000 Arrival Date: 11/06/2022 Time: 11:29 Bed IW1 Private MD: Diagnosis: Pain in right wrist Presentation: 11/06 11:43 Chief complaint: Patient states: i have been having issues with my right wrist for jh5 months. My daughter fell on it this morning and now it's way worse and I cant even hold my phone. I dont remember anything happening to it months ago, it just started happening but this morning it got way worse now that she fell on it. Coronavirus screen: Vaccine status: Patient reports receiving the 2nd dose of the covid vaccine. Client denies travel out of the [place] in the last 14 days. Ebola Screen: Patient negative for fever greater than or equal to 101.5 degrees Fahrenheit, and additional compatible Ebola Virus Disease symptoms Patient denies exposure to infectious person. Patient denies travel to an Ebola-affected area in the 21 days before illness onset. Initial Sepsis Screen: Does the patient meet any 2 criteria? No. Patient's initial sepsis screen is negative. Does the patient have a suspected source of infection? No. Patient's initial sepsis screen is negative. Risk Assessment: Do you want to hurt yourself or someone else? Patient reports no desire to harm self or others. Onset of symptoms was March 2022. 11:43 Method Of Arrival: Ambulatory [facility] 11:43 Acuity: NAVID 4 jh5 Triage Assessment: 11:45 General: Appears in no apparent distress. uncomfortable, obese, well groomed, well jh5 developed, Behavior is calm, cooperative, appropriate for age. Pain: Complains of pain in right hand. 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 - Social history:: Smoking status: Patient denies any tobacco usage or history of. Screenin:46 [facility] ED Fall Risk Assessment (Adult). Abuse screen: Denies threats or abuse. Denies jh5 injuries from another. Nutritional screening: No deficits noted. Tuberculosis screening: No symptoms or risk factors identified. 13:47 Humpty Dumpty Scale Fall Assessment Tool (age< 18yrs) Age 13 years and above (1 pt) jh5 Gender Female (1 pt). Fall Risk No fall in past 12 months (0 pts). No secondary diagnosis (0 pts). No IV (0 pts). Ambulatory Aid- None/Bed Rest/Nurse Assist (0 pts). Gait- Normal/Bed Rest/Wheelchair (0 pts) Mental Status- Oriented to own ability (0 pts). Total Sandoval Fall Scale indicates No Risk (0-24 pts). Vital Signs: 11:43 Pulse 101; Resp 18; Temp 98.6; Pulse Ox 100% ; Pain 10/10; jh5 11:46 BP 129 / 85; Pulse 94; Resp 18; Temp 98.6; Pulse Ox 100% ; Weight 113.4 kg; Height 5 [facility] ft. 1 in. (154.94 cm); Pain 10/10; 12:49 BP 122 / 88; Pulse 90; Resp 18; Pulse Ox 100% ; jh5 11:46 Body Mass Index 47.24 (113.40 kg, 154.94 cm) 5 ED Course: 11:29 Patient arrived in ED. as 11:30 Fang Jeffrey FNP-C [facility] kb 11:30 Joby Gray DO is Attending Physician. kb 11:45 Triage completed. 5 11:45 Arm band placed on left wrist. 5 12:13 Wrist Right 3 View XRAY In Process Unspecified. EDAK 13:46 Patient has correct armband on for positive identification. 5 13:46 No provider procedures requiring assistance completed. Patient did not have IV access 5 during this emergency room visit. Administered Medications: No medications were administered Medication: 13:47 VIS not applicable for this client. [facility] Outcome: 13:38 Discharge ordered by . kimberley 13:46 Discharged to home [facility] 13:46 Condition: good 13:46 Discharge instructions given to patient, Instructed on discharge instructions, follow up and referral plans. safety practices, Demonstrated understanding of instructions, follow-up care, medications. 13:47 Patient left the ED. [facility] Signatures: Dispatcher [employer] EDMS Fang Jeffrey FNP-C FNP-Ckb Martinez, Amelia as Goldy, Bela, RN RN jh5
[2022-11-06 13:53] VITALS: TEMP 98.6; O2SAT 100
[2022-11-06 13:55] VITALS: BP 122/88
== END 2022-11-06 13:47 | disposition home or self-care (01) ==
LOC: ER 11:26
DX: M25.531 Pain in right wrist (principal)
CPT/HCPCS: 99283